=== PATIENT | male | born 1995 | race Two or more races ===

== ENCOUNTER 2022-05-01 03:50 | Inpatient (IN) | payer SELFPAY ==
[~2022-05-01] VITALS: Ht 170.2 cm; Wt 180.0 kg
[2022-05-01 05:58] LABS: Basophils # (auto) 0.1 10 ^3/uL (0-0.2); Basophils % (auto) 0.8 % (0.0-2.0); Eosinophils # (auto) 0 10 ^3/uL (0-0.8); Eosinophils % (auto) 0.6 % (0.0-7.0); Hematocrit 42.8 % (41.0-53.0); Hemoglobin 15.5 g/dL (13.5-17.5); Lymphocytes # (auto) 1.2 10 ^3/uL (0.4-5.4); Lymphocytes % (auto) 19.3 % (10.0-50.0); Mean Corpuscular Hemoglobin 32.3 pg (28.0-32.0); Mean Corpuscular Hgb Conc. 36.2 g/dL (32.0-36.0); Mean Corpuscular Volume 89.4 fL (80.0-100.0); Monocytes # (auto) 0.5 10 ^3/uL (0-1.3); Monocytes % (auto) 9.1 % (0.0-12.0); Neutrophils # (auto) 4.2 10 ^3/uL (1.6-8.6); Neutrophils % (auto) 70.2 % (37.0-80.0); Nucleated Red Blood Cells % 1.5 %; Red Blood Cells 4.79 10^6/uL (4.5-5.90); Red Cell Distribution Width 13.4 % (11.8-14.3)
[2022-05-01 06:35] LABS: Albumin 4.3 g/dL (3.4-5.0); Calcium 8.9 mg/dL (8.5-10.1); Potassium 3.6 mmol/L (3.5-5.1)
[2022-05-01 06:37] LABS: BUN/Creatinine Ratio 8.8; Bilirubin, Total 0.8 mg/dL (0.2-1.0); Total Protein 7.4 g/dL (6.4-8.2)
[2022-05-01] MEDS ORDERED: MORPHINE SULFATE 4 MG/ML SYR/VIAL IV ONE (06:45)
[2022-05-01] MEDS ORDERED: ONDANSETRON HCL 4 MG/2 ML VIAL IV ONE (06:45)
[2022-05-01] MEDS ORDERED: ONDA-144 PO (07:03)
[2022-05-01] MEDS ORDERED: SODIUM CHLORIDE 0.9% 1,000 ML IV ONE ×2 (08:30→09:30)
[2022-05-01 11:08] LABS: Urine Bacteria FEW /hpf (None Seen); Urine Blood Negative /uL (Negative); Urine Specific Gravity 1.011 (1.001-1.035); Urine WBC 13 /hpf (0 - 3)
[2022-05-01 11:25] LABS: Alcohol, Urine < 3.0 mg/dL (0-10); Amphetamine Screen, Urine NEGATIVE (NEGATIVE); Barbiturate Scree,Urine NEGATIVE (NEGATIVE); Benzodiazephine Screen, Urine NEGATIVE (NEGATIVE); Cannabinoid Screen, Urine NEGATIVE (NEGATIVE); Cocaine Screen, Urine NEGATIVE (NEGATIVE); Opiate Scree,Urine NEGATIVE (NEGATIVE); Phencyclidine Screen, Urine NEGATIVE (NEGATIVE)
[2022-05-01] MEDS ORDERED: ACETAMINOPHEN 325 MG TAB PO PRN (12:45)
[2022-05-01] MEDS ORDERED: NITROGLYCERIN 0.4 MG SL TAB SL PRN (12:45)
[2022-05-01] MEDS ORDERED: ONDANSETRON HCL 4 MG/2 ML VIAL IV PRN (12:45)
[2022-05-01] MEDS ORDERED: MORPHINE SULFATE INJ 2 MG/ml SYRG IV PRN ×2 (12:45)
[2022-05-01] MEDS ORDERED: HYDROcodone-ACET 5/325MG TAB PO PRN (12:45)
[2022-05-01] MEDS ORDERED: hydrALAZINE HCL 20 MG/ML VL IV PRN (13:00)
[2022-05-01] MEDS ORDERED: PANTOPRAZOLE 40 MG/10 ML VIAL INJ IV ONE (13:00)
[2022-05-01] MEDS: SODIUM CHLORIDE 0.9% 1,000 ML IV SCH ×2 (13:50→19:59)
[2022-05-01 13:51] LABS: Cholesterol 235 mg/dL (< 200)
[2022-05-01 13:54] LABS: HDL Cholesterol 49 mg/dL (40-59); LDL Cholesterol 149 mg/dL (< 100); Triglycerides 341 mg/dL (< 150)
[2022-05-02] MEDS: SODIUM CHLORIDE 0.9% 1,000 ML IV SCH (02:05)
[2022-05-02 05:00] VITALS: BP 148/94
[2022-05-02 05:32] LABS: Basophils # (auto) 0 10 ^3/uL (0-0.2); Basophils % (auto) 0.7 % (0.0-2.0); Eosinophils # (auto) 0.1 10 ^3/uL (0-0.8); Eosinophils % (auto) 2.6 % (0.0-7.0); Hematocrit 40.6 % (41.0-53.0); Hemoglobin 14.6 g/dL (13.5-17.5); Lymphocytes # (auto) 0.8 10 ^3/uL (0.4-5.4); Lymphocytes % (auto) 16.7 % (10.0-50.0); Mean Corpuscular Hemoglobin 32.3 pg (28.0-32.0); Mean Corpuscular Hgb Conc. 35.9 g/dL (32.0-36.0); Mean Corpuscular Volume 90.1 fL (80.0-100.0); Monocytes # (auto) 0.5 10 ^3/uL (0-1.3); Monocytes % (auto) 9.7 % (0.0-12.0); Neutrophils # (auto) 3.4 10 ^3/uL (1.6-8.6); Neutrophils % (auto) 70.3 % (37.0-80.0); Nucleated Red Blood Cells % 0.1 %; Red Blood Cells 4.51 10^6/uL (4.5-5.90); Red Cell Distribution Width 13.2 % (11.8-14.3); White Blood Cell 4.9 10^3/uL (4.4-10.8)
[2022-05-02 05:55] LABS: Albumin 3.4 g/dL (3.4-5.0); BUN/Creatinine Ratio 8.8; Calcium 8.4 mg/dL (8.5-10.1); Potassium 3.5 mmol/L (3.5-5.1)
[2022-05-02 06:01] LABS: Bilirubin, Total 1.9 mg/dL (0.2-1.0); Total Protein 6.7 g/dL (6.4-8.2)
[2022-05-02] MEDS ORDERED: PANTOPRAZOLE 40 MG/10 ML VIAL INJ IV SCH (10:00)
== END 2022-05-02 07:40 | disposition left against medical advice (07) | DRG 392 ==
LOC: ER 03:50 → TELE 12:40
PROVIDERS: ADMIT Registered Nurse; ATTEND Registered Nurse
DX: K52.9 Noninfective gastroenteritis and colitis, unspecified (principal); Z68.44 Body mass index [BMI] 60.0-69.9, adult; I10 Essential (primary) hypertension; F17.210 Nicotine dependence, cigarettes, uncomplicated; E66.9 Obesity, unspecified; R00.0 Tachycardia, unspecified; Z20.822 Contact with and (suspected) exposure to COVID-19; Z71.3 Dietary counseling and surveillance; Z53.29 Procedure and treatment not carried out because of patient's decision for other reasons; R07.9 Chest pain, unspecified
CPT/HCPCS: 36415; 71045; 74176; 76705; 80053; 80061; 80307; 81001; 83036; 83690; 83880; 84443; 84484; 85025; 85379; 87426; 93005; 96361; 96374; 96375; C9113; G0378; J2405

== ENCOUNTER 2022-09-18 09:56 | Inpatient (IN) | payer MEDICAID, OTHER ==
[~2022-09-18] VITALS: Ht 170.2 cm; Wt 86.0 kg
[~2022-09-18 09:56] MED LIST: ONDA-144 PO
[2022-09-18] MEDS ORDERED: PANTOPRAZOLE 40 MG/10 ML VIAL INJ IV ONE (11:15)
[2022-09-18] MEDS ORDERED: ONDANSETRON HCL 4 MG/2 ML VIAL IV ONE (11:15)
[2022-09-18] MEDS ORDERED: LORazepam 2MG/ML-1ML VIAL IV ONE (11:15)
[2022-09-18] MEDS ORDERED: THIAMINE 100mg/ml INJ (200mg/2ml VIAL) IV ONE (11:15)
[2022-09-18] MEDS ORDERED: SODIUM CHLORIDE 0.9% 1,000 ML IV ONE (11:30)
[2022-09-18 11:49] LABS: Basophils # (auto) 0 10 ^3/uL (0-0.2); Basophils % (auto) 0.5 % (0.0-2.0); Eosinophils # (auto) 0.1 10 ^3/uL (0-0.8); Eosinophils % (auto) 1.3 % (0.0-7.0); Hematocrit 47.8 % (41.0-53.0); Hemoglobin 16.5 g/dL (13.5-17.5); Lymphocytes # (auto) 0.8 10 ^3/uL (0.4-5.4); Lymphocytes % (auto) 9.5 % (10.0-50.0); Mean Corpuscular Hemoglobin 30.3 pg (28.0-32.0); Mean Corpuscular Hgb Conc. 34.5 g/dL (32.0-36.0); Mean Corpuscular Volume 87.8 fL (80.0-100.0); Monocytes # (auto) 0.5 10 ^3/uL (0-1.3); Monocytes % (auto) 6.5 % (0.0-12.0); Neutrophils # (auto) 6.8 10 ^3/uL (1.6-8.6); Neutrophils % (auto) 82.2 % (37.0-80.0); Nucleated Red Blood Cells % 0.1 %; Red Blood Cells 5.45 10^6/uL (4.5-5.90); Red Cell Distribution Width 13.5 % (11.8-14.3); White Blood Cell 8.3 10^3/uL (4.4-10.8)
[2022-09-18 11:53] LABS: Urine Bacteria NONE SEEN /hpf (None Seen); Urine Blood Negative /uL (Negative); Urine Mucus MANY (None Seen); Urine Specific Gravity 1.033 (1.001-1.035); Urine WBC 1 /hpf (0 - 3)
[2022-09-18 11:59] LABS: Chloride 104 mmol/L (98-107); Potassium 4.4 mmol/L (3.5-5.1); Sodium 138 mmol/L (136-145)
[2022-09-18 12:12] LABS: Alanine Aminotransferase 142 U/L (16-61); Albumin 4.4 g/dL (3.4-5.0); Alkaline Phosphatase 123 U/L (45-117); Anion Gap 7 (5-15); Aspartate Aminotransferase 157 U/L (15-37); Bilirubin, Total 1.4 mg/dL (0.2-1.0); Blood Alcohol < 3.0 mg/dL (<10); Blood Urea Nitrogen 7 mg/dL (7-18); Calcium 9.7 mg/dL (8.5-10.1); Carbon Dioxide 27 mmol/L (21-32); GFR African American 98 mL/min; GFR Non-African American 81 mL/min; Glucose 138 mg/dL (74-106); Lipase 115 U/L (73-393); Total Protein 8.7 g/dL (6.4-8.2)
[2022-09-18 13:04] LABS: Amphetamine Screen, Urine NEGATIVE (NEGATIVE); Barbiturate Scree,Urine NEGATIVE (NEGATIVE); Benzodiazephine Screen, Urine POSITIVE (NEGATIVE); Cannabinoid Screen, Urine POSITIVE (NEGATIVE); Cocaine Screen, Urine POSITIVE (NEGATIVE); Opiate Scree,Urine NEGATIVE (NEGATIVE); Phencyclidine Screen, Urine NEGATIVE (NEGATIVE)
[2022-09-18] MEDS: MAGNESIUM SULFATE 1GM/100ML 100 ML IV SCH ×2 (13:15→14:15)
[2022-09-18] MEDS ORDERED: MORPHINE SULFATE INJ 2 MG/ml SYRG IV PRN (13:45)
[2022-09-18] MEDS ORDERED: NITROGLYCERIN 0.4 MG SL TAB SL PRN (13:45)
[2022-09-18] MEDS ORDERED: LORazepam 2MG/ML-1ML VIAL IV PRN (14:00)
[2022-09-18] MEDS ORDERED: hydrALAZINE HCL 20 MG/ML VL IV PRN (14:00)
[2022-09-18] MEDS: chlordiazePOXIDE HCL 25 MG CAP PO SCH ×2 (14:00→21:35)
[2022-09-18] MEDS ORDERED: ONDANSETRON HCL 4 MG/2 ML VIAL IV PRN (14:00)
[2022-09-18 14:44] LABS: INR 1.11 (0.9-1.15); Partial Thromboplastin Time 28.2 SEC (24.5-34.5)
[2022-09-18] MEDS: MORPHINE SULFATE INJ 2 MG/ml SYRG IV PRN ×2 (14:57→21:36)
[2022-09-18 15:11] VITALS: RESP 18; O2SAT 96
[2022-09-19] MEDS: chlordiazePOXIDE HCL 25 MG CAP PO SCH ×3 (05:38→21:14)
[2022-09-19 05:41] LABS: Basophils # (auto) 0 10 ^3/uL (0-0.2); Basophils % (auto) 0.4 % (0.0-2.0); Eosinophils # (auto) 0.3 10 ^3/uL (0-0.8); Eosinophils % (auto) 7.3 % (0.0-7.0); Hematocrit 38.9 % (41.0-53.0); Hemoglobin 13.5 g/dL (13.5-17.5); Lymphocytes # (auto) 0.9 10 ^3/uL (0.4-5.4); Lymphocytes % (auto) 20.2 % (10.0-50.0); Mean Corpuscular Hemoglobin 30.6 pg (28.0-32.0); Mean Corpuscular Hgb Conc. 34.7 g/dL (32.0-36.0); Mean Corpuscular Volume 88.1 fL (80.0-100.0); Monocytes # (auto) 0.3 10 ^3/uL (0-1.3); Monocytes % (auto) 8.2 % (0.0-12.0); Neutrophils # (auto) 2.7 10 ^3/uL (1.6-8.6); Neutrophils % (auto) 63.9 % (37.0-80.0); Nucleated Red Blood Cells % 0.4 %; Red Blood Cells 4.41 10^6/uL (4.5-5.90); Red Cell Distribution Width 13.5 % (11.8-14.3); White Blood Cell 4.3 10^3/uL (4.4-10.8)
[2022-09-19 06:04] LABS: Potassium 3.5 mmol/L (3.5-5.1)
[2022-09-19 06:13] LABS: Albumin 3.4 g/dL (3.4-5.0); BUN/Creatinine Ratio 11.2 (10.0-20.0); Bilirubin, Total 2.2 mg/dL (0.2-1.0); Calcium 8.6 mg/dL (8.5-10.1); Total Protein 6.8 g/dL (6.4-8.2)
[2022-09-19 08:00] VITALS: PULSE 68; RESP 16; O2SAT 97
[2022-09-19] MEDS: PANTOPRAZOLE 40 MG/10 ML VIAL INJ IV SCH (09:37)
[2022-09-19] MEDS ORDERED: FOLIC ACID 1 MG, MULTIPLE VITAMIN 10 ML, MAGNESIUM SULF SDV 50% 8 MEQ, THIAMINE INJ 100... INJ SCH ×5 (12:00)
[2022-09-19] MEDS: HYDROcodone-ACET 5/325MG TAB PO PRN (17:55)
[2022-09-19 19:50] VITALS: PULSE 96; PULSE 98; RESP 18; O2SAT 95
[2022-09-19 22:00] VITALS: BP 143/99; PULSE 94; RESP 18; TEMP 98; O2SAT 94
[2022-09-19] MEDS ORDERED: TEMAZEPAM 15 MG CAP PO ONE (23:30)
[2022-09-20 05:00] VITALS: BP 125/76; PULSE 84; RESP 18; TEMP 97.9; O2SAT 100
[2022-09-20 06:57] LABS: Albumin 3.2 g/dL (3.4-5.0); Potassium 3.6 mmol/L (3.5-5.1)
[2022-09-20 07:01] LABS: BUN/Creatinine Ratio 9.7 (10.0-20.0); Basophils # (auto) 0 10 ^3/uL (0-0.2); Basophils % (auto) 0.5 % (0.0-2.0); Eosinophils # (auto) 0.4 10 ^3/uL (0-0.8); Eosinophils % (auto) 8.7 % (0.0-7.0); Hematocrit 39.7 % (41.0-53.0); Hemoglobin 13.8 g/dL (13.5-17.5); Lymphocytes # (auto) 0.9 10 ^3/uL (0.4-5.4); Lymphocytes % (auto) 17.6 % (10.0-50.0); Mean Corpuscular Hemoglobin 30.8 pg (28.0-32.0); Mean Corpuscular Hgb Conc. 34.7 g/dL (32.0-36.0); Mean Corpuscular Volume 88.8 fL (80.0-100.0); Monocytes # (auto) 0.4 10 ^3/uL (0-1.3); Monocytes % (auto) 7.9 % (0.0-12.0); Neutrophils # (auto) 3.2 10 ^3/uL (1.6-8.6); Neutrophils % (auto) 65.3 % (37.0-80.0); Red Blood Cells 4.47 10^6/uL (4.5-5.90); Red Cell Distribution Width 13.8 % (11.8-14.3); Total Protein 6.6 g/dL (6.4-8.2); White Blood Cell 4.9 10^3/uL (4.4-10.8)
[2022-09-20 08:00] VITALS: PULSE 109; PULSE 85; RESP 17; O2SAT 99
[2022-09-20 09:00] VITALS: BP 152/82; PULSE 109; RESP 17; TEMP 97.9; O2SAT 99
[2022-09-20] MEDS: PANTOPRAZOLE 40 MG/10 ML VIAL INJ IV SCH (09:11)
[2022-09-20] MEDS: HYDROcodone-ACET 5/325MG TAB PO PRN (09:18)
[2022-09-20] MEDS ORDERED: chlordiazePOXIDE HCL 25 MG CAP PO SCH (10:00)
[2022-09-20] MEDS ORDERED: LORA-1121 PO (11:04)
[2022-09-20] MEDS ORDERED: GABA-1250 PO (11:04)
[2022-09-20] MEDS ORDERED: FOLIC ACID 1 MG, MULTIPLE VITAMIN 10 ML, MAGNESIUM SULF SDV 50% 8 MEQ, THIAMINE INJ 100... INJ SCH ×5 (12:00)
[2022-09-20 13:00] VITALS: BP 142/77; PULSE 82; RESP 17; TEMP 97.6; O2SAT 94
[2022-09-20 14:56] VITALS: TEMP 36.4
[2022-09-21] MEDS ORDERED: chlordiazePOXIDE HCL 25 MG CAP PO SCH (07:00)
== END 2022-09-20 15:40 | disposition home or self-care (01) | DRG 775 ==
LOC: EDBD 09:56 → ER 09:56 → TELE 13:46 → TELE-WESTW 09-19 17:35
PROVIDERS: ADMIT Internal Medicine; ATTEND Internal Medicine
DX: F10.239 Alcohol dependence with withdrawal, unspecified (principal); K70.10 Alcoholic hepatitis without ascites; F17.210 Nicotine dependence, cigarettes, uncomplicated; I16.0 Hypertensive urgency; F19.10 Other psychoactive substance abuse, uncomplicated; I10 Essential (primary) hypertension; R74.01 Elevation of levels of liver transaminase levels
CPT/HCPCS: 36415; 70450; 74177; 80053; 80307; 80320; 81001; 82140; 82550; 83690; 83735; 84484; 85025; 85610; 85730; 96361; 96374; 96375; C9113; G0378; J2405

== ENCOUNTER 2023-01-07 18:03 | Inpatient (IN) | payer MEDICAID ==
[~2023-01-07] VITALS: Ht 172.7 cm; Wt 95.5 kg
[~2023-01-07 18:03] MED LIST changes: +GABA-1250 PO; +LORA-1121 PO
[2023-01-07] MEDS ORDERED: SODIUM CHLORIDE 0.9% 1,000 ML IV ONE (18:30)
[2023-01-07] MEDS ORDERED: LORazepam 2MG/ML-1ML VIAL IV ONE (18:30)
[2023-01-07 19:01] LABS: Basophils # (auto) 0 10 ^3/uL (0-0.2); Basophils % (auto) 0.7 % (0.0-2.0); Eosinophils # (auto) 0.2 10 ^3/uL (0-0.8); Eosinophils % (auto) 2.4 % (0.0-7.0); Hematocrit 43.2 % (41.0-53.0); Hemoglobin 15.1 g/dL (13.5-17.5); Lymphocytes # (auto) 1.5 10 ^3/uL (0.4-5.4); Lymphocytes % (auto) 21.6 % (10.0-50.0); Mean Corpuscular Hgb Conc. 34.9 g/dL (32.0-36.0); Mean Corpuscular Volume 94.6 fL (80.0-100.0); Monocytes # (auto) 0.5 10 ^3/uL (0-1.3); Monocytes % (auto) 7.5 % (0.0-12.0); Neutrophils # (auto) 4.7 10 ^3/uL (1.6-8.6); Neutrophils % (auto) 67.8 % (37.0-80.0); Nucleated Red Blood Cells % 0.1 %; Red Blood Cells 4.56 10^6/uL (4.5-5.90); Red Cell Distribution Width 16.7 % (11.8-14.3)
[2023-01-07 19:13] LABS: Lipase 60 U/L (12-53)
[2023-01-07 19:15] LABS: Alanine Aminotransferase 97 U/L (7-40); Albumin 4.7 g/dL (3.2-4.8); Alkaline Phosphatase 118 U/L (46-116); Anion Gap 13 (5-15); Aspartate Aminotransferase 94 U/L (13-40); BUN/Creatinine Ratio 9.4 (10.0-20.0); Blood Alcohol 124.3 mg/dL (<10); Blood Urea Nitrogen 9 mg/dL (9-23); Calcium 9.1 mg/dL (8.7-10.4); Carbon Dioxide 21 mmol/L (20-30); Chloride 106 mmol/L (98-107); Glucose 153 mg/dL (74-106); Sodium 140 mmol/L (136-145)
[2023-01-07 19:16] LABS: Bilirubin, Total 0.7 mg/dL (0.2-1.0); Total Protein 7.7 g/dL (5.7-8.2)
[2023-01-07 19:22] LABS: Creatine Kinase IFCC 94 U/L (46-171)
[2023-01-07] MEDS ORDERED: NITROGLYCERIN 0.4 MG SL TAB SL PRN (20:45)
[2023-01-07] MEDS ORDERED: ONDANSETRON HCL 4 MG/2 ML VIAL IV PRN (20:45)
[2023-01-07] MEDS ORDERED: chlordiazePOXIDE HCL 25 MG CAP PO PRN (20:45)
[2023-01-07] MEDS ORDERED: MORPHINE SULFATE INJ 2 MG/ml SYRG IV PRN (20:45)
[2023-01-08] VITALS (8 sets, daily range): BP systolic 130–148; BP diastolic 86–99; PULSE 90–121; RESP 18–20; TEMP 97.9–98.5; O2SAT 93–99
[2023-01-08] MEDS ORDERED: LORazepam 0.5 MG TAB PO ONE (05:15)
[2023-01-08 05:19] LABS: Alanine Aminotransferase 100 U/L (7-40); Albumin 4.6 g/dL (3.2-4.8); Alkaline Phosphatase 99 U/L (46-116); Anion Gap 9 (5-15); Aspartate Aminotransferase 100 U/L (13-40); BUN/Creatinine Ratio 11.9 (10.0-20.0); Bilirubin, Total 1.5 mg/dL (0.2-1.0); Blood Urea Nitrogen 12 mg/dL (9-23); Calcium 9.2 mg/dL (8.5-10.1); Carbon Dioxide 26 mmol/L (20-30); Chloride 108 mmol/L (98-107); Glucose 130 mg/dL (74-106); Sodium 143 mmol/L (136-145); Total Protein 7.3 g/dL (5.7-8.2)
[2023-01-08 06:37] LABS: Basophils # (auto) 0 10 ^3/uL (0-0.2); Basophils % (auto) 0.4 % (0.0-2.0); Eosinophils # (auto) 0.1 10 ^3/uL (0-0.8); Eosinophils % (auto) 1.7 % (0.0-7.0); Hematocrit 40.9 % (41.0-53.0); Hemoglobin 14.1 g/dL (13.5-17.5); Lymphocytes # (auto) 1.3 10 ^3/uL (0.4-5.4); Lymphocytes % (auto) 16.8 % (10.0-50.0); Mean Corpuscular Hemoglobin 32.8 pg (28.0-32.0); Mean Corpuscular Hgb Conc. 34.6 g/dL (32.0-36.0); Mean Corpuscular Volume 94.8 fL (80.0-100.0); Monocytes # (auto) 0.5 10 ^3/uL (0-1.3); Monocytes % (auto) 7.1 % (0.0-12.0); Neutrophils # (auto) 5.5 10 ^3/uL (1.6-8.6); Nucleated Red Blood Cells % 0.7 %; Red Blood Cells 4.31 10^6/uL (4.5-5.90); Red Cell Distribution Width 16.2 % (11.8-14.3); White Blood Cell 7.5 10^3/uL (4.4-10.8)
[2023-01-08 06:50] LABS: INR 1.13 (0.9-1.15); Partial Thromboplastin Time 27.8 SEC (24.5-34.5); Prothrombin Time 11.8 sec (9.3-11.8)
[2023-01-08] MEDS ORDERED: cloNIDine HCL 0.1 MG TAB PO PRN (10:00)
[2023-01-08] MEDS: PANTOPRAZOLE 40 MG TAB PO SCH (11:12)
[2023-01-08] MEDS: LORazepam 2MG/ML-1ML VIAL IV PRN (11:18)
[2023-01-08] MEDS: FOLIC ACID 1 MG, MULTIPLE VITAMIN 10 ML, MAGNESIUM SULF SDV 50% 8 MEQ, THIAMINE INJ 100... INJ SCH ×5 (13:31)
[2023-01-08 14:12] LABS: Urine Bacteria NONE SEEN /hpf (None Seen); Urine Blood Negative /uL (Negative); Urine Clarity Clear (Clear); Urine Color Yellow (Yellow); Urine Protein, UAD Negative (Negative); Urine Specific Gravity 1.024 (1.001-1.035); Urine WBC 10 /hpf (0 - 3); Urine pH 7.5 (5.0-8.0)
[2023-01-08 14:29] LABS: Amphetamine Screen, Urine Neg (NEGATIVE); Barbiturate Scree,Urine Neg (NEGATIVE); Benzodiazephine Screen, Urine Neg (NEGATIVE); Cannabinoid Screen, Urine Neg (NEGATIVE); Cocaine Screen, Urine Neg (NEGATIVE); Opiate Scree,Urine Neg (NEGATIVE); Phencyclidine Screen, Urine Neg (NEGATIVE)
[2023-01-09] VITALS (7 sets, daily range): BP systolic 119–145; BP diastolic 76–98; PULSE 84–117; RESP 12–20; TEMP 97.5–98.7; O2SAT 93–97
[2023-01-09 06:11] LABS: Alanine Aminotransferase 150 U/L (7-40); Albumin 4.1 g/dL (3.2-4.8); Alkaline Phosphatase 96 U/L (46-116); Anion Gap 7 (5-15); Aspartate Aminotransferase 219 U/L (13-40); BUN/Creatinine Ratio 10.8 (10.0-20.0); Blood Urea Nitrogen 11 mg/dL (9-23); Calcium 8.6 mg/dL (8.7-10.4); Carbon Dioxide 26 mmol/L (20-30); Chloride 106 mmol/L (98-107); Glucose 117 mg/dL (74-106); Magnesium 2.2 mg/dL (1.6-2.6); Sodium 139 mmol/L (136-145)
[2023-01-09 06:12] LABS: Bilirubin, Total 2.1 mg/dL (0.2-1.0); Total Protein 6.7 g/dL (5.7-8.2)
[2023-01-09] MEDS: PANTOPRAZOLE 40 MG TAB PO SCH (09:37)
[2023-01-09] MEDS: FOLIC ACID 1 MG, MULTIPLE VITAMIN 10 ML, MAGNESIUM SULF SDV 50% 8 MEQ, THIAMINE INJ 100... INJ SCH ×5 (13:41)
[2023-01-09] MEDS: LORazepam 2MG/ML-1ML VIAL IV PRN ×2 (17:19→23:17)
[2023-01-10 05:00] VITALS: BP 117/69; PULSE 91; RESP 17; TEMP 98.1; O2SAT 95
[2023-01-10 05:52] LABS: Alanine Aminotransferase 192 U/L (7-40); Alkaline Phosphatase 87 U/L (46-116)
[2023-01-10 05:53] LABS: Albumin 4.1 g/dL (3.2-4.8); Anion Gap 7 (5-15); Aspartate Aminotransferase 200 U/L (13-40); BUN/Creatinine Ratio 7.6 (10.0-20.0); Bilirubin, Total 1.3 mg/dL (0.2-1.0); Blood Urea Nitrogen 7 mg/dL (9-23); Calcium 8.6 mg/dL (8.7-10.4); Carbon Dioxide 25 mmol/L (20-30); Chloride 106 mmol/L (98-107); Glucose 114 mg/dL (74-106); Sodium 138 mmol/L (136-145); Total Protein 6.7 g/dL (5.7-8.2)
[2023-01-10 08:00] VITALS: PULSE 102; RESP 16
[2023-01-10 09:00] VITALS: BP 142/93; PULSE 102; RESP 16; TEMP 98.3; O2SAT 97
[2023-01-10] MEDS ORDERED: LORA-1121 PO (09:47)
[2023-01-10] MEDS ORDERED: MULT-351 PO (09:47)
[2023-01-10] MEDS: PANTOPRAZOLE 40 MG TAB PO SCH (10:45)
[2023-01-10] MEDS: FOLIC ACID 1 MG, MULTIPLE VITAMIN 10 ML, MAGNESIUM SULF SDV 50% 8 MEQ, THIAMINE INJ 100... INJ SCH ×5 (12:00)
[2023-01-10 13:30] VITALS: BP 125/79; PULSE 103; RESP 16; TEMP 98.5; O2SAT 97
== END 2023-01-10 14:21 | disposition home or self-care (01) | DRG 280 ==
LOC: ER 18:03 → TELE 20:51 → TELE-CENTR 01-08 05:30 → CENTRAL 01-09 15:26
PROVIDERS: ADMIT Nurse Practitioner; ATTEND Internal Medicine
DX: K70.10 Alcoholic hepatitis without ascites (principal); E66.9 Obesity, unspecified; F10.239 Alcohol dependence with withdrawal, unspecified; I10 Essential (primary) hypertension; K76.0 Fatty (change of) liver, not elsewhere classified; Z68.31 Body mass index [BMI] 31.0-31.9, adult
CPT/HCPCS: 36415; 70450; 71045; 74176; 80053; 80307; 80320; 81001; 82550; 82962; 83690; 83735; 84100; 84484; 85025; 85610; 85730; 93005; 96361; 96374; 99291; G0378; J2405

== ENCOUNTER 2023-02-20 20:56 | Emergency (ER) | payer MEDICAID ==
[~2023-02-20] VITALS: Ht 170.2 cm; Wt 91.0 kg
[~2023-02-20 20:56] MED LIST changes: +MULT-351 PO
[2023-02-20 21:56] LABS: Basophils # (auto) 0 10 ^3/uL (0-0.2); Basophils % (auto) 0.7 % (0.0-2.0); Eosinophils # (auto) 0.2 10 ^3/uL (0-0.8); Eosinophils % (auto) 3.8 % (0.0-7.0); Hematocrit 41.6 % (41.0-53.0); Lymphocytes # (auto) 1.2 10 ^3/uL (0.4-5.4); Lymphocytes % (auto) 19.8 % (10.0-50.0); Mean Corpuscular Hemoglobin 31.8 pg (28.0-32.0); Mean Corpuscular Hgb Conc. 33.6 g/dL (32.0-36.0); Mean Corpuscular Volume 94.7 fL (80.0-100.0); Monocytes # (auto) 0.4 10 ^3/uL (0-1.3); Monocytes % (auto) 6.1 % (0.0-12.0); Neutrophils # (auto) 4.2 10 ^3/uL (1.6-8.6); Neutrophils % (auto) 69.6 % (37.0-80.0); Red Blood Cells 4.39 10^6/uL (4.5-5.90); Red Cell Distribution Width 14.8 % (11.8-14.3)
[2023-02-20 22:10] LABS: Alanine Aminotransferase 147 U/L (7-40); Albumin 4.4 g/dL (3.2-4.8); Alkaline Phosphatase 88 U/L (46-116); Anion Gap 6 (5-15); Aspartate Aminotransferase 67 U/L (13-40); BUN/Creatinine Ratio 10.3 (10.0-20.0); Blood Urea Nitrogen 11 mg/dL (9-23); Carbon Dioxide 26 mmol/L (20-30); Chloride 107 mmol/L (98-107); Glucose 213 mg/dL (74-106); Magnesium 1.8 mg/dL (1.6-2.6); Potassium 3.8 mmol/L (3.5-5.1); Sodium 139 mmol/L (136-145); Total Protein 7.1 g/dL (5.7-8.2)
[2023-02-20] MEDS ORDERED: KETOROLAC TROMETH 60MG/2ML VIAL IM ONE (22:15)
[2023-02-20] MEDS ORDERED: ONDANSETRON ODT 4 MG TAB PO ONE (22:15)
[2023-02-20 22:59] LABS: Bilirubin, Total 0.8 mg/dL (0.2-1.0)
[2023-02-20 23:03] LABS: INR 1.09 (0.9-1.15); Partial Thromboplastin Time 27.3 SEC (24.5-34.5); Prothrombin Time 11.4 sec (9.3-11.8)
[2023-02-20 23:14] VITALS: BP 154/89; PULSE 124; RESP 18; O2SAT 95
[2023-02-21 00:01] LABS: Amphetamine Screen, Urine Neg (NEGATIVE); Urine Bacteria NONE SEEN /hpf (None Seen); Urine Blood Negative /uL (Negative); Urine Clarity Clear (Clear); Urine Color Yellow (Yellow); Urine Mucus FEW (None Seen); Urine Protein, UAD Negative (Negative); Urine Specific Gravity 1.024 (1.001-1.035); Urine Urobilinogen Normal (Negative); Urine WBC <1 /hpf (0 - 3); Urine pH 5.5 (5.0-8.0)
[2023-02-21 00:02] LABS: Barbiturate Scree,Urine Neg (NEGATIVE); Benzodiazephine Screen, Urine Neg (NEGATIVE); Cannabinoid Screen, Urine Pos (NEGATIVE); Cocaine Screen, Urine Neg (NEGATIVE); Opiate Scree,Urine Neg (NEGATIVE); Phencyclidine Screen, Urine Neg (NEGATIVE)
[2023-02-21] MEDS ORDERED: IBUP-1455 PO (00:45)
== END 2023-02-21 00:55 | disposition home or self-care (01) ==
LOC: ER 20:56
DX: M94.0 Chondrocostal junction syndrome [Tietze] (principal); I10 Essential (primary) hypertension; Z79.899 Other long term (current) drug therapy
CPT/HCPCS: 36415; 80053; 80307; 80320; 81001; 82962; 83735; 83880; 84443; 84484; 85025; 85610; 85730; 93005; 96372; 99284; J1885; Q0162

== ENCOUNTER 2023-09-22 12:49 | Inpatient (IN) | payer MEDICAID ==
[~2023-09-22] VITALS: Ht 170.2 cm; Wt 94.4 kg
[~2023-09-22 12:49] MED LIST changes: +IBUP-1455 PO
[2023-09-22] MEDS: LORazepam 2MG/ML-1ML VIAL IV ONE (13:19)
[2023-09-22] MEDS: SODIUM CHLORIDE 0.9% 1,000 ML IV ONE ×2 (13:22→14:34)
[2023-09-22 13:37] LABS: Basophils # (auto) 0 10 ^3/uL (0-0.2); Basophils % (auto) 0.4 % (0.0-2.0); Eosinophils # (auto) 0.1 10 ^3/uL (0-0.8); Eosinophils % (auto) 1.8 % (0.0-7.0); Hematocrit 42.5 % (41.0-53.0); Hemoglobin 14.6 g/dL (13.5-17.5); Lymphocytes # (auto) 0.8 10 ^3/uL (0.4-5.4); Mean Corpuscular Hemoglobin 33.2 pg (28.0-32.0); Mean Corpuscular Hgb Conc. 34.4 g/dL (32.0-36.0); Mean Corpuscular Volume 96.5 fL (80.0-100.0); Monocytes # (auto) 0.5 10 ^3/uL (0-1.3); Monocytes % (auto) 10.7 % (0.0-12.0); Neutrophils # (auto) 2.9 10 ^3/uL (1.6-8.6); Neutrophils % (auto) 69.1 % (37.0-80.0); Nucleated Red Blood Cells % 0.2 %; Red Blood Cells 4.41 10^6/uL (4.5-5.90); Red Cell Distribution Width 16.9 % (11.8-14.3); White Blood Cell 4.3 10^3/uL (4.4-10.8)
[2023-09-22 13:55] LABS: Alanine Aminotransferase 76 U/L (7-40); Albumin 4.4 g/dL (3.2-4.8); Alkaline Phosphatase 113 U/L (46-116); Anion Gap 11 (5-15); Aspartate Aminotransferase 26 U/L (13-40); Bilirubin, Total 0.8 mg/dL (0.2-1.0); Blood Urea Nitrogen 12 mg/dL (9-23); Calcium 9.6 mg/dL (8.7-10.4); Carbon Dioxide 22 mmol/L (20-30); Chloride 98 mmol/L (98-107); Magnesium 1.6 mg/dL (1.6-2.6); Potassium 4.9 mmol/L (3.5-5.1); Sodium 131 mmol/L (136-145); Total Protein 6.9 g/dL (5.7-8.2)
[2023-09-22 14:07] LABS: Glucose 773 mg/dL (74-106)
[2023-09-22] MEDS: InsuLIN REG 1unit/0.01ml Soln (100units/ml) IV ONE (14:29)
[2023-09-22 16:28] LABS: Urine Bacteria None Seen /hpf (None Seen)
[2023-09-22 16:39] LABS: Urine Blood Negative /uL (Negative); Urine Clarity Clear (Clear); Urine Color STRAW (Yellow); Urine Protein, UAD Negative (Negative); Urine Urobilinogen Normal (Negative); Urine WBC <1 /hpf (0 - 3)
[2023-09-22 16:50] LABS: Amphetamine Screen, Urine Neg (NEGATIVE); Barbiturate Scree,Urine Neg (NEGATIVE); Benzodiazephine Screen, Urine Neg (NEGATIVE); Cannabinoid Screen, Urine Neg (NEGATIVE); Cocaine Screen, Urine Neg (NEGATIVE); Opiate Scree,Urine Neg (NEGATIVE); Phencyclidine Screen, Urine Neg (NEGATIVE)
[2023-09-22] MEDS ORDERED: NITROGLYCERIN 0.4 MG SL TAB SL PRN (20:00)
[2023-09-22] MEDS ORDERED: LORazepam 0.5 MG TAB PO PRN (20:00)
[2023-09-22] MEDS ORDERED: DOCUSATE SOD 100 MG CAP PO PRN (20:00)
[2023-09-22] MEDS ORDERED: ACETAMINOPHEN 325 MG TAB PO PRN (20:00)
[2023-09-22] MEDS ORDERED: DEXTROSE (50%) 50ML SYRG IV PRN (20:00)
[2023-09-22] MEDS ORDERED: HYDROcodone-ACET 5/325MG TAB PO PRN (20:00)
[2023-09-22] MEDS ORDERED: ONDANSETRON HCL 4 MG/2 ML VIAL IV PRN (20:00)
[2023-09-22] MEDS: ACCU-CHEK COMFORT CURVE STRIP VI SCH (20:00)
[2023-09-22] MEDS: InsuLIN REG 1unit/0.01ml Soln (100units/ml) SC SCH (20:58)
[2023-09-22] MEDS: SODIUM CHLORIDE 0.9% 1,000 ML IV SCH (21:33)
[2023-09-23] VITALS (11 sets, daily range): BP systolic 128–152; BP diastolic 89–103; PULSE 91–108; RESP 16–21; TEMP 95.8–98.4; O2SAT 94–100
[2023-09-23] MEDS: MORPHINE SULFATE INJ 2 MG/ml SYRG IV PRN (00:26)
[2023-09-23] MEDS ORDERED: BUSP30TA PO (01:29)
[2023-09-23] MEDS ORDERED: CLON0.5T4 PO (01:29)
[2023-09-23 06:44] LABS: Basophils # (auto) 0 10 ^3/uL (0-0.2); Basophils % (auto) 0.2 % (0.0-2.0); Eosinophils # (auto) 0.1 10 ^3/uL (0-0.8); Eosinophils % (auto) 3.3 % (0.0-7.0); Hematocrit 37.6 % (41.0-53.0); Hemoglobin 13.1 g/dL (13.5-17.5); Lymphocytes % (auto) 23.1 % (10.0-50.0); Mean Corpuscular Hemoglobin 32.4 pg (28.0-32.0); Mean Corpuscular Hgb Conc. 34.8 g/dL (32.0-36.0); Mean Corpuscular Volume 93.1 fL (80.0-100.0); Monocytes # (auto) 0.4 10 ^3/uL (0-1.3); Neutrophils # (auto) 2.8 10 ^3/uL (1.6-8.6); Neutrophils % (auto) 63.4 % (37.0-80.0); Nucleated Red Blood Cells % 0.2 %; Red Blood Cells 4.04 10^6/uL (4.5-5.90); Red Cell Distribution Width 17.5 % (11.8-14.3); White Blood Cell 4.5 10^3/uL (4.4-10.8)
[2023-09-23 06:45] LABS: Chloride 105 mmol/L (98-107); Potassium 3.3 mmol/L (3.5-5.1); Sodium 139 mmol/L (136-145)
[2023-09-23 06:46] LABS: Anion Gap 10 (5-15); Carbon Dioxide 24 mmol/L (20-30)
[2023-09-23 06:47] LABS: Calcium 8.7 mg/dL (8.7-10.4)
[2023-09-23 06:51] LABS: BUN/Creatinine Ratio 10.2 (10.0-20.0); Blood Urea Nitrogen 9 mg/dL (9-23)
[2023-09-23 06:52] LABS: Glucose 229 mg/dL (74-106)
[2023-09-23] MEDS: ENOXAPARIN SOD 40 MG/0.4 ML SYRINGE SC SCH (10:00)
[2023-09-23 14:24] LABS: Triglycerides 932 mg/dL (< 150)
[2023-09-23 14:26] LABS: HDL Cholesterol 22 mg/dL (40-59)
[2023-09-23 14:27] LABS: Cholesterol 244 mg/dL (< 200)
[2023-09-23] MEDS: FOLIC ACID 1 MG, MAGNESIUM SULF SDV 50% 8 MEQ, MULTIPLE VITAMIN 10 ML, THIAMINE INJ 100... INJ SCH (17:17)
[2023-09-23] MEDS: metFORMIN HYDROCHLORIDE 500 MG TAB PO SCH (17:20)
[2023-09-23] MEDS: GABAPENTIN 300 MG CAP PO SCH (22:06)
[2023-09-24 00:42] VITALS: BP 100/40; PULSE 112; RESP 20; TEMP 98.1; O2SAT 93
[2023-09-24 00:49] VITALS: BP 128/82; PULSE 93; RESP 17; TEMP 97.4; O2SAT 97
[2023-09-24 05:00] VITALS: BP 123/92; PULSE 80; RESP 17; TEMP 97.8; O2SAT 99
[2023-09-24 05:32] LABS: Basophils # (auto) 0 10 ^3/uL (0-0.2); Basophils % (auto) 0.2 % (0.0-2.0); Eosinophils # (auto) 0.2 10 ^3/uL (0-0.8); Eosinophils % (auto) 4.6 % (0.0-7.0); Hematocrit 39.9 % (41.0-53.0); Hemoglobin 14.1 g/dL (13.5-17.5); Lymphocytes # (auto) 1.2 10 ^3/uL (0.4-5.4); Lymphocytes % (auto) 26.4 % (10.0-50.0); Mean Corpuscular Hemoglobin 32.8 pg (28.0-32.0); Mean Corpuscular Hgb Conc. 35.4 g/dL (32.0-36.0); Mean Corpuscular Volume 92.7 fL (80.0-100.0); Monocytes # (auto) 0.5 10 ^3/uL (0-1.3); Monocytes % (auto) 10.8 % (0.0-12.0); Neutrophils # (auto) 2.7 10 ^3/uL (1.6-8.6); Nucleated Red Blood Cells % 0.3 %; Red Cell Distribution Width 17.5 % (11.8-14.3); White Blood Cell 4.7 10^3/uL (4.4-10.8)
[2023-09-24 05:42] LABS: Chloride 105 mmol/L (98-107); Potassium 3.5 mmol/L (3.5-5.1); Sodium 140 mmol/L (136-145)
[2023-09-24 05:43] LABS: Anion Gap 9 (5-15); Carbon Dioxide 26 mmol/L (20-30)
[2023-09-24 05:48] LABS: BUN/Creatinine Ratio 7.4 (10.0-20.0); Blood Urea Nitrogen 6 mg/dL (9-23); Glucose 191 mg/dL (74-106)
[2023-09-24 08:00] VITALS: PULSE 80; PULSE 83; RESP 18; O2SAT 94
[2023-09-24] MEDS: MULTIPLE VITAMINS W/ MINERALS TAB PO SCH (08:52)
[2023-09-24] MEDS: busPIRone HCL 10 MG TAB PO SCH (08:52)
[2023-09-24 09:00] VITALS: BP 141/91; PULSE 84; RESP 16; TEMP 97.8; O2SAT 97
[2023-09-24] MEDS ORDERED: METF-371 PO (09:56)
[2023-09-24] MEDS ORDERED: PANT40T PO (09:58)
[2023-09-24] MEDS ORDERED: LOS25T PO (10:01)
[2023-09-24 12:45] VITALS: BP_SYST 130; BP_SYST 132; BP_DIAS 90; BP_DIAS 99; PULSE 82; RESP 15; RESP 18; TEMP 36.6; O2SAT 95; O2SAT 97
== END 2023-09-24 13:27 | disposition home or self-care (01) | DRG 199 ==
LOC: ER 12:49 → TELE 20:02 → TELE-E-ADS 23:51 → OBSVTOIN 09-23 14:06
PROVIDERS: ADMIT Nurse Practitioner Family; ATTEND Hospitalist
DX: I16.0 Hypertensive urgency (principal); E87.1 Hypo-osmolality and hyponatremia; E11.65 Type 2 diabetes mellitus with hyperglycemia; E83.42 Hypomagnesemia; F10.10 Alcohol abuse, uncomplicated; Y90.9 Presence of alcohol in blood, level not specified; E87.6 Hypokalemia; F41.9 Anxiety disorder, unspecified; F32.A Depression, unspecified; Z79.899 Other long term (current) drug therapy; Z83.3 Family history of diabetes mellitus
CPT/HCPCS: 36415; 71045; 80048; 80053; 80061; 80307; 80320; 81001; 82962; 83036; 83735; 84484; 85025; 87081; 93005; 93306; 96361; 96374; 96375; G0378; J1815

== ENCOUNTER 2024-01-05 12:30 | Inpatient (IN) | payer MEDICAID ==
[~2024-01-05] VITALS: Ht 170.2 cm; Wt 91.4 kg
[~2024-01-05 12:30] MED LIST changes: +BUSP30TA PO; +LOS25T PO; +METF-371 PO; +PANT40T PO
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
[2024-01-05] MEDS: MORPHINE SULFATE 4 MG/ML SYR/VIAL IV ONE (13:08)
[2024-01-05] MEDS: ONDANSETRON HCL 4 MG/2 ML VIAL IV ONE ×2 (13:08→15:50)
[2024-01-05] MEDS: SODIUM CHLORIDE 0.9% 1,000 ML IV ONE ×2 (13:08→14:02)
[2024-01-05] MEDS: cloNIDine HCL 0.1 MG TAB PO ONE (13:09)
[2024-01-05] MEDS: InsuLIN REG 1unit/0.01ml Soln (100units/ml) IV ONE (13:09)
--- NOTE | 2024-01-05 13:54 | ECG ---
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
[2024-01-05] MEDS: MORPHINE SULFATE INJ 2 MG/ml SYRG IV ONE (15:50)
[2024-01-05] MEDS: cefTRIAXone 1GM/50ML D5W 50 ML IV ONE (15:58)
[2024-01-05 16:08] LABS: Basophils # (auto) 0 10 ^3/uL (0-0.2); Basophils % (auto) 0.4 % (0.0-2.0); Eosinophils # (auto) 0.1 10 ^3/uL (0-0.8); Eosinophils % (auto) 1.9 % (0.0-7.0); Hematocrit 42.4 % (41.0-53.0); Hemoglobin 14.9 g/dL (13.5-17.5); Lymphocytes # (auto) 0.6 10 ^3/uL (0.4-5.4); Lymphocytes % (auto) 9.1 % (10.0-50.0); Mean Corpuscular Hemoglobin 32.6 pg (28.0-32.0); Monocytes # (auto) 0.6 10 ^3/uL (0-1.3); Monocytes % (auto) 8.2 % (0.0-12.0); Neutrophils # (auto) 5.6 10 ^3/uL (1.6-8.6); Neutrophils % (auto) 80.4 % (37.0-80.0); Nucleated Red Blood Cells % 0.2 %; Platelet Count (auto) 261 10^3/uL (140-450); Red Blood Cells 4.56 10^6/uL (4.5-5.90); Red Cell Distribution Width 13.5 % (11.8-14.3)
[2024-01-05 16:34] LABS: Anion Gap 6 (5-15); Carbon Dioxide 26 mmol/L (20-31); Chloride 102 mmol/L (98-107); Potassium 4.3 mmol/L (3.5-5.1); Sodium 134 mmol/L (136-145)
[2024-01-05 16:35] LABS: Calcium 9.5 mg/dL (8.7-10.4)
[2024-01-05 16:39] LABS: Glucose 227 mg/dL (74-106)
[2024-01-05 16:40] LABS: BUN/Creatinine Ratio 13.6 (10.0-20.0); Blood Urea Nitrogen 9 mg/dL (9-23)
--- NOTE | 2024-01-05 17:32 | DVH ---
EXAM: XY R KNEE 2V XRAY CLINICAL HISTORY: fall COMPARISON: None TECHNIQUE: XY R KNEE 2V XRAY Findings/Impression: 2 views of the right knee. There is no evidence of an acute fracture, dislocation, blastic, or lytic lesions. No radiopaque foreign bodies. No joint effusion. Mild soft tissue edema.
[2024-01-05] MEDS: HYDROcodone-ACET 10/325MG TAB PO ONE (17:52)
[2024-01-05 19:24] LABS: Urine Bacteria None Seen /hpf (None Seen)
[2024-01-05 19:39] LABS: Urine Blood Negative /uL (Negative); Urine Clarity Clear (Clear); Urine Color Yellow (Yellow); Urine Hyaline Cast FEW /lpf (0 - 2); Urine Mucus FEW (None Seen); Urine Protein, UAD TRACE (Negative); Urine Specific Gravity 1.039 (1.001-1.035); Urine Urobilinogen Normal (Negative); Urine WBC 2 /hpf (0 - 3); Urine pH 5.5 (5.0-9.0)
--- NOTE | 2024-01-05 21:41 | DVH ---
EXAM: XY CHEST XRAY 1 VIEW CLINICAL HISTORY: cp TECHNIQUE: Single AP view of the chest WID: COMPARISON: XY CHEST PORTABLE on DOS: 09/22/23 FINDINGS: Lines and tubes: None Chest: The heart size and pulmonary vasculature is within normal limits. No pleural effusion, pneumothorax, or consolidation. The osseous structures are grossly intact. IMPRESSION: No acute cardiopulmonary abnormality.
--- NOTE | 2024-01-05 21:44 | DVH ---
EXAM: CT CT R KNEE WO CONTRAST INDICATION: infected wound EXAM DATE: 01/05/2024 09:15 PM COMPARISON: CT HEAD WITHOUT CONTRAST on DOS: 01/07/23, CT HEAD WITHOUT CONTRAST on DOS: 09/18/22 TECHNIQUE: Multiple axial CT images of the right knee were obtained using bone algorithm. Axial and c oronal reformatting was done. Bone and soft tissue windows were reviewed. Radiation Dose Information: CT Dose: CTDI volume is 7.75 mGy. Dose-length product is 255.43 mGy*cm Findings: There is no evidence of an acute fracture, dislocation, blastic, or lytic lesions. No radiopaque foreign bodies. No joint effusion. Mild anterior soft tissue edema. No focal fluid collections. Impression: 1. No acute osseous abnormality. 2. Mild anterior soft tissue edema. 3. No focal fluid collections.
[2024-01-05] MEDS ORDERED: NITROGLYCERIN 0.4 MG SL TAB SL PRN (22:30)
[2024-01-05] MEDS ORDERED: ONDANSETRON HCL 4 MG/2 ML VIAL IV PRN (22:30)
[2024-01-05] MEDS ORDERED: MORPHINE SULFATE INJ 2 MG/ml SYRG IV PRN (22:30)
[2024-01-05] MEDS ORDERED: DOCUSATE SOD 100 MG CAP PO PRN (22:30)
[2024-01-05] MEDS ORDERED: DEXTROSE (50%) 50ML SYRG IV PRN (22:30)
[2024-01-05] MEDS ORDERED: hydrALAZINE HCL 20 MG/ML VL IV PRN (22:45)
[2024-01-05] MEDS: SODIUM CHLORIDE 0.9% 1,000 ML IV SCH (22:46)
[2024-01-06] VITALS (8 sets, daily range): BP systolic 103–153; BP diastolic 40–106; PULSE 66–107; RESP 18–20; TEMP 97.3–98.2; O2SAT 95–98
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
[2024-01-06 04:53] LABS: Basophils # (auto) 0 10 ^3/uL (0-0.2); Basophils % (auto) 0.6 % (0.0-2.0); Eosinophils # (auto) 0.3 10 ^3/uL (0-0.8); Eosinophils % (auto) 5.7 % (0.0-7.0); Hematocrit 42.5 % (41.0-53.0); Hemoglobin 14.6 g/dL (13.5-17.5); Lymphocytes # (auto) 1.1 10 ^3/uL (0.4-5.4); Lymphocytes % (auto) 22.6 % (10.0-50.0); Mean Corpuscular Hemoglobin 32.1 pg (28.0-32.0); Mean Corpuscular Hgb Conc. 34.4 g/dL (32.0-36.0); Mean Corpuscular Volume 93.2 fL (80.0-100.0); Monocytes # (auto) 0.6 10 ^3/uL (0-1.3); Monocytes % (auto) 11.3 % (0.0-12.0); Neutrophils # (auto) 2.9 10 ^3/uL (1.6-8.6); Neutrophils % (auto) 59.8 % (37.0-80.0); Nucleated Red Blood Cells % 0.1 %; Platelet Count (auto) 266 10^3/uL (140-450); Red Blood Cells 4.56 10^6/uL (4.5-5.90); Red Cell Distribution Width 13.8 % (11.8-14.3); White Blood Cell 4.9 10^3/uL (4.4-10.8)
[2024-01-06 04:56] LABS: Chloride 101 mmol/L (98-107); Sodium 135 mmol/L (136-145)
[2024-01-06 04:57] LABS: Anion Gap 7 (5-15); Calcium 9.6 mg/dL (8.7-10.4); Carbon Dioxide 27 mmol/L (20-31)
[2024-01-06 05:02] LABS: BUN/Creatinine Ratio 8.5 (10.0-20.0); Blood Urea Nitrogen 7 mg/dL (9-23); Glucose 210 mg/dL (74-106)
[2024-01-06] MEDS: HYDROcodone-ACET 5/325MG TAB PO PRN (05:04)
[2024-01-06] MEDS: PIPERACILLIN-TAZOB 3.375GM 100 ML IV SCH (06:08)
[2024-01-06] MEDS: ACCU-CHEK COMFORT CURVE STRIP VI SCH (07:00)
[2024-01-06] MEDS: InsuLIN REG 1unit/0.01ml Soln (100units/ml) SC SCH ×2 (08:32→21:29)
[2024-01-06] MEDS: ENOXAPARIN SOD 40 MG/0.4 ML SYRINGE SC SCH (10:00)
[2024-01-06] MEDS: PANTOPRAZOLE 40 MG TAB PO SCH (11:17)
[2024-01-06] MEDS: HYDROcodone-ACET 10/325MG TAB PO ONE (11:17)
[2024-01-06] MEDS: LOSARTAN POTASSIUM 25 MG TAB PO SCH (11:18)
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
[2024-01-06] MEDS ORDERED: VANCOMYCIN PER PHARMACY 0 MG IV SCH (15:00)
[2024-01-06] MEDS: VANCOMYCIN 1GM/200ML PREMIX 200 ML IV SCH (15:57)
[2024-01-06] MEDS: diphenhdrAMINE HCL 50 MG/1 ML VL IV ONE (19:29)
[2024-01-06] MEDS: methylPREDNISolone SOD SUCC 125 MG/2 ML VL IV ONE (19:29)
[2024-01-06] MEDS: methylPREDNISolone SOD SUCC 125 MG/2 ML VL ONE (19:30)
[2024-01-06] MEDS: FAMOTIDINE (10MG/ML) 2ML VL IV ONE (19:36)
[2024-01-06] MEDS: diphenhdrAMINE HCL 50 MG/1 ML VL ONE (19:36)
[2024-01-06] MEDS: cloNIDine HCL 0.1 MG TAB PO ONE (20:03)
[2024-01-06] MEDS: FAMOTIDINE (10MG/ML) 2ML VL IV SCH (21:21)
[2024-01-06] MEDS ORDERED: SEMA2INJ3 SC (21:35)
[2024-01-06] MEDS ORDERED: ATOR20TA50 PO (21:35)
[2024-01-06] MEDS: methylPREDNISolone SOD SUCC 40 MG/ML VL IV SCH (23:46)
[2024-01-06] MEDS: diphenhdrAMINE HCL 50 MG/1 ML VL IV SCH (23:46)
[2024-01-07] VITALS (9 sets, daily range): BP systolic 112–146; BP diastolic 72–91; PULSE 66–104; RESP 17–21; TEMP 97.9–98.4; O2SAT 97–98
[2024-01-07] MEDS ORDERED: VANCOMYCIN 1.25GM/250ML 250 ML IV SCH
[2024-01-07 06:22] LABS: Basophils # (auto) 0 10 ^3/uL (0-0.2); Basophils % (auto) 0.1 % (0.0-2.0); Eosinophils # (auto) 0 10 ^3/uL (0-0.8); Hematocrit 45.9 % (41.0-53.0); Lymphocytes # (auto) 0.4 10 ^3/uL (0.4-5.4); Lymphocytes % (auto) 4.3 % (10.0-50.0); Mean Corpuscular Hemoglobin 32.9 pg (28.0-32.0); Monocytes # (auto) 0.1 10 ^3/uL (0-1.3); Monocytes % (auto) 0.8 % (0.0-12.0); Neutrophils # (auto) 9.2 10 ^3/uL (1.6-8.6); Neutrophils % (auto) 94.8 % (37.0-80.0); Platelet Count (auto) 299 10^3/uL (140-450); Red Blood Cells 4.88 10^6/uL (4.5-5.90); Red Cell Distribution Width 13.6 % (11.8-14.3); White Blood Cell 9.7 10^3/uL (4.4-10.8)
[2024-01-07 06:23] LABS: Chloride 101 mmol/L (98-107); Potassium 4.5 mmol/L (3.5-5.1); Sodium 134 mmol/L (136-145)
[2024-01-07 06:24] LABS: Anion Gap 12 (5-15); Carbon Dioxide 21 mmol/L (20-31)
[2024-01-07 06:29] LABS: BUN/Creatinine Ratio 11.4 (10.0-20.0); Blood Urea Nitrogen 10 mg/dL (9-23); Glucose 292 mg/dL (74-106)
[2024-01-07] MEDS: cefTRIAXone 2GM/50ML D5W 50 ML IV SCH (11:55)
--- NOTE | 2024-01-07 12:15 | ECG ---
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
--- NOTE | 2024-01-07 13:56 | DVHPN2 ---
Progress Note - Dictate Date Seen: Jan 07, 2024 Subjective Patient is awake and alert X4. No S/S of distress/SOB and is complaining of 7 out of 10 pain. vital signs Vital Sign Date Time Temp Pulse Resp B/P (MAP) Pulse Ox O2 Delivery O2 Flow Rate FiO2 01/07/24 12:28 97.9 78 19 146/91 (109) 97 97.9 01/07/24 10:06 Room Air* 0 21 Total Intake and Output 01/06/24 01/06/24 01/07/24 15:00 23:00 07:00 Intake Total 400 ml 1500 ml Balance 400 ml 1500 ml medications Current Medications Medications Dose Ordered Sig/Yordan Route Start Time Stop Time Status Last Admin Dose Admin Sodium Chloride 1,000 ml @ 100 mls/hr Q10H IV 01/05/24 22:30 01/06/24 22:09 100 MLS/HR Docusate Sodium 100 mg BIDPRN PRN PO 01/05/24 22:30 Acetaminophen 650 mg Q6HP PRN PO 01/05/24 22:30 Acetaminophen/ Hydrocodone Bitart 1 tab Q4HP PRN PO 01/05/24 22:30 01/07/24 10:25 1 TAB Ondansetron HCl 4 mg Q4HP PRN IV 01/05/24 22:30 Enoxaparin Sodium 40 mg DAILY SC 01/06/24 10:00 Nitroglycerin 0.4 mg Q5MINP PRN SL 01/05/24 22:30 Morphine Sulfate 2 mg Q30M PRN IV 01/05/24 22:30 Diagnostic Test (Pha) 1 strip ACHS 01/06/24 07:00 01/07/24 11:55 1 STRIP Insulin Human Regular HS SC 01/06/24 22:00 01/06/24 21:29 6 UNITS Insulin Human Regular AC SC 01/06/24 07:00 01/07/24 12:47 6 UNITS Dextrose 50 ml UD PRN IV 01/05/24 22:30 Losartan Potassium 25 mg DAILY PO 01/06/24 10:00 01/07/24 10:26 25 MG Hydralazine HCl 10 mg Q4HP PRN IV 01/05/24 22:45 Pantoprazole Sodium 40 mg DAILY PO 01/06/24 10:00 01/07/24 10:26 40 MG Vancomycin HCl 0 ml @ 0 mls/hr UD IV 01/06/24 15:00 Ceftriaxone Sodium/Dextrose 50 ml @ 50 mls/hr DAILY IV 01/07/24 10:00 01/07/24 11:55 50 MLS/HR Vancomycin HCl 250 ml @ 200 mls/hr Q8H IV 01/07/24 00:00 Hold Methylprednisolone Sodium Succinate 40 mg Q6HR IV 01/07/24 00:00 01/07/24 11:54 40 MG Famotidine 20 mg Q12HR IV 01/06/24 22:00 01/07/24 10:26 20 MG Diphenhydramine HCl 50 mg Q6HR IV 01/07/24 00:00 01/07/24 11:54 50 MG laboratory and microbiology Laboratory Tests 01/07/24 04:29 Test 01/07/24 04:29 Range/Units Serum Glucose 292 H 74-106 mg/dL Assessment/Plan Assessment Right knee wound with cellulitis Chest pain Hypertension Uncontrolled T2DM with hyperglycemia Plan/Recommendation recommendations X-ray (date unspecified): No fluid detected deep inside, indicating superficial involvement. MRSA swab: Ordered, results pending. Current medication: Vancomycin started for suspected MRSA infection. Pain control by consult primary Continue [place] as needed for pain relief MANJEET PLATT MD Jan 07, 2024 13:56
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
[2024-01-07] MEDS ORDERED: VANCOMYCIN 1GM/200ML PREMIX 200 ML IV SCH (17:00)
--- NOTE | 2024-01-07 19:36 | DVHPN2 ---
Subjective Patient stated that right knee cellulitis is improving. Reviewed: Care Plan Changes from previous H/P or p: No Changes Eyes: No Pain, No Vision change, No Conjunctivae inflammation, No Eyelid inflammation, No Other, No Redness ENT: No Ear pain, No Ear discharge, No Nose pain, No Nose discharge, No Nose congestion, No Mouth pain, No Mouth swelling, No Throat pain, No Throat swelling, No Other Cardiovascular: Chest Pain Respiratory: No Cough, No Dry, No Shortness of breath, No SOB with excertion, No Wheezing, No Hemoptysis, No Pleuritic Pain, No Sputum, No Other Gastrointestinal: No Nausea, No Vomiting, No Abdominal Pain, No Diarrhea, No Constipation, No Melena, No Hematochezia, No Other Genitourinary: No Dysuria, No Frequency, No Incontinence, No Hematuria, No Retention, No Other Musculoskeletal: No other, No neck pain, No shoulder pain, No arm pain, No back pain, No hand pain; leg pain; No foot pain Skin: No Rash; Lesions; No Jaundice, No Bruising, No Other Objective Vitals Vital Signs Date Time Temp Pulse Resp B/P (MAP) Pulse Ox O2 Delivery O2 Flow Rate FiO2 01/07/24 17:00 98.4 90 17 126/76 (93) 97 98.4 01/07/24 10:06 Room Air* 0 21 Intake/Output Intake and Output 01/07/24 07:00 Intake Total 1900 ml Balance 1900 ml Intake Oral 600 ml IV Total 1300 ml # Voids 2 Exam HEENT pupils are reactive Neck is supple CV is S1-S2 regular rate and rhythm Respiratory diminished breath sound bases GI positive bowel sounds Extremity no edema 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 Medications Current Medications Medications Dose Ordered Sig/Yordan Route Start Time Stop Time Status Last Admin Dose Admin Sodium Chloride 1,000 ml @ 100 mls/hr Q10H IV 01/05/24 22:30 01/06/24 22:09 100 MLS/HR Docusate Sodium 100 mg BIDPRN PRN PO 01/05/24 22:30 Acetaminophen 650 mg Q6HP PRN PO 01/05/24 22:30 Acetaminophen/ Hydrocodone Bitart 1 tab Q4HP PRN PO 01/05/24 22:30 01/07/24 16:34 1 TAB Ondansetron HCl 4 mg Q4HP PRN IV 01/05/24 22:30 Enoxaparin Sodium 40 mg DAILY SC 01/06/24 10:00 Nitroglycerin 0.4 mg Q5MINP PRN SL 01/05/24 22:30 Morphine Sulfate 2 mg Q30M PRN IV 01/05/24 22:30 Diagnostic Test (Pha) 1 strip ACHS 01/06/24 07:00 01/07/24 17:07 1 STRIP Insulin Human Regular HS SC 01/06/24 22:00 01/06/24 21:29 6 UNITS Insulin Human Regular AC SC 01/06/24 07:00 01/07/24 17:09 8 UNITS Dextrose 50 ml UD PRN IV 01/05/24 22:30 Losartan Potassium 25 mg DAILY PO 01/06/24 10:00 01/07/24 10:26 25 MG Hydralazine HCl 10 mg Q4HP PRN IV 01/05/24 22:45 Pantoprazole Sodium 40 mg DAILY PO 01/06/24 10:00 01/07/24 10:26 40 MG Ceftriaxone Sodium/Dextrose 50 ml @ 50 mls/hr DAILY IV 01/07/24 10:00 01/07/24 11:55 50 MLS/HR Methylprednisolone Sodium Succinate 40 mg Q6HR IV 01/07/24 00:00 01/07/24 18:12 40 MG Famotidine 20 mg Q12HR IV 01/06/24 22:00 01/07/24 10:26 20 MG Diphenhydramine HCl 50 mg Q6HR IV 01/07/24 00:00 01/07/24 18:11 50 MG Laboratory Results Laboratory Tests 01/07/24 04:29 Chemistry Test 01/07/24 04:29 Calcium Level 10.0 mg/dL (8.7-10.4) Urinalysis Test 01/05/24 19:23 Urine Color Yellow (Yellow) Urine Clarity Clear (Clear) Urine pH 5.5 (5.0-9.0) Urine Specific [place] 1.039 (1.001-1.035) Urine Protein Trace (Negative) H Urine Ketones 3+ (Negative) H Urine Blood Negative /uL (Negative) Urine Nitrite Negative (Negative) Urine Bilirubin Negative (Negative) Urine Urobilinogen Normal mg/dL (Negative) Urine Leukocyte Esterase Negative /uL (Negative) Urine RBC 1 /hpf (0 - 3) Urine WBC 2 /hpf (0 - 3) Urine Squamous Epithelial Cells Few /hpf (<5) Urine Bacteria None seen /hpf (None Seen) Urine Hyaline Casts Few /lpf (0 - 2) Urine Mucus Few (None Seen) Urine Glucose 4+ mg/dL (Normal) H Microbiology Microbiology Date/Time Source Procedure Growth Status 01/06/24 15:37 Knee Right Gram Stain - Final Resulted 01/06/24 15:37 Knee Right Wound Culture - Preliminary Resulted Assessment/Plan Assessment/Plan 27-year-old young male who presented to the hospital with a right knee pain 1. Right knee cellulitis 2. Chest pain ND ruled out 3. Diabetes mellitus type 2 4. Hypertension -continue antibiotics, discharge plan. Plan discussed with: Patient My Orders Orders - TERESA HESTER MD Procedure Category Date Status Time Apply: PATRICK 01/07/24 In Process 10:02 Date of Service: Jan 07, 2024 Billing Provider: TERESA HESTER MD Common Visit Codes: NOT BILLABLE TERESA HESTER MD Jan 07, 2024 19:36
[2024-01-08] VITALS (7 sets, daily range): BP systolic 118–132; BP diastolic 66–80; PULSE 69–94; RESP 16–18; TEMP 36.4; O2SAT 95–98
[2024-01-08] MEDS: ACETAMINOPHEN 325 MG TAB PO PRN (00:18)
[2024-01-08 07:12] LABS: Basophils # (auto) 0 10 ^3/uL (0-0.2); Eosinophils # (auto) 0 10 ^3/uL (0-0.8); Hematocrit 44.2 % (41.0-53.0); Hemoglobin 15.1 g/dL (13.5-17.5); Lymphocytes # (auto) 0.4 10 ^3/uL (0.4-5.4); Lymphocytes % (auto) 2.6 % (10.0-50.0); Mean Corpuscular Hemoglobin 32.5 pg (28.0-32.0); Mean Corpuscular Volume 95.4 fL (80.0-100.0); Monocytes # (auto) 0.5 10 ^3/uL (0-1.3); Monocytes % (auto) 3.4 % (0.0-12.0); Neutrophils # (auto) 12.9 10 ^3/uL (1.6-8.6); Platelet Count (auto) 289 10^3/uL (140-450); Red Blood Cells 4.64 10^6/uL (4.5-5.90); White Blood Cell 13.7 10^3/uL (4.4-10.8)
[2024-01-08 07:22] LABS: Anion Gap 14 (5-15); Calcium 9.7 mg/dL (8.7-10.4); Carbon Dioxide 15 mmol/L (20-31); Chloride 106 mmol/L (98-107); Potassium 4.4 mmol/L (3.5-5.1); Sodium 135 mmol/L (136-145)
[2024-01-08 07:27] LABS: Glucose 321 mg/dL (74-106)
[2024-01-08 07:28] LABS: BUN/Creatinine Ratio 11.9 (10.0-20.0); Blood Urea Nitrogen 12 mg/dL (9-23)
--- NOTE | 2024-01-08 12:50 | DVHPN2 ---
Progress Note - Dictate Date Seen: Jan 08, 2024 Subjective Patient is awake and alert X4. No S/S of distress/SOB and is complaining of 7 out of 10 pain. Patient stated that right knee cellulitis is improving. vital signs Vital Sign Date Time Temp Pulse Resp B/P (MAP) Pulse Ox O2 Delivery O2 Flow Rate FiO2 01/08/24 09:31 126/80 01/08/24 08:50 97.6 89 18 96 97.6 01/08/24 08:00 Room Air* 0 21 Total Intake and Output 01/07/24 01/07/24 01/08/24 15:00 23:00 07:00 Intake Total 50 ml 1600 ml 1600 ml Output Total 2000 ml 1100 ml Balance 50 ml -400 ml 500 ml medications Current Medications Medications Dose Ordered Sig/Yordan Route Start Time Stop Time Status Last Admin Dose Admin Sodium Chloride 1,000 ml @ 100 mls/hr Q10H IV 01/05/24 22:30 01/08/24 06:58 100 MLS/HR Docusate Sodium 100 mg BIDPRN PRN PO 01/05/24 22:30 Acetaminophen 650 mg Q6HP PRN PO 01/05/24 22:30 01/08/24 00:18 650 MG Acetaminophen/ Hydrocodone Bitart 1 tab Q4HP PRN PO 01/05/24 22:30 01/08/24 09:46 1 TAB Ondansetron HCl 4 mg Q4HP PRN IV 01/05/24 22:30 Enoxaparin Sodium 40 mg DAILY SC 01/06/24 10:00 Nitroglycerin 0.4 mg Q5MINP PRN SL 01/05/24 22:30 Morphine Sulfate 2 mg Q30M PRN IV 01/05/24 22:30 Diagnostic Test (Pha) 1 strip ACHS 01/06/24 07:00 01/08/24 11:29 1 STRIP Insulin Human Regular HS SC 01/06/24 22:00 01/07/24 22:17 6 UNITS Insulin Human Regular AC SC 01/06/24 07:00 01/08/24 11:30 15 UNITS Dextrose 50 ml UD PRN IV 01/05/24 22:30 Losartan Potassium 25 mg DAILY PO 01/06/24 10:00 01/08/24 09:31 25 MG Hydralazine HCl 10 mg Q4HP PRN IV 01/05/24 22:45 Pantoprazole Sodium 40 mg DAILY PO 01/06/24 10:00 01/08/24 09:31 40 MG Ceftriaxone Sodium/Dextrose 50 ml @ 50 mls/hr DAILY IV 01/07/24 10:00 01/08/24 09:30 50 MLS/HR Methylprednisolone Sodium Succinate 40 mg Q6HR IV 01/07/24 00:00 01/08/24 11:28 40 MG Famotidine 20 mg Q12HR IV 01/06/24 22:00 01/08/24 09:30 20 MG Diphenhydramine HCl 50 mg Q6HR IV 01/07/24 00:00 01/08/24 11:28 50 MG laboratory and microbiology Laboratory Tests 01/08/24 06:57 Test 01/08/24 06:57 Range/Units Serum Glucose 321 H 74-106 mg/dL Assessment/Plan Assessment Right knee wound with cellulitis Chest pain Hypertension Uncontrolled T2DM with hyperglycemia Plan/Recommendation recommendations X-ray (date unspecified): No fluid detected deep inside, indicating superficial involvement. MRSA swab: Ordered, results pending. Current medication: Vancomycin started for suspected MRSA infection. Pain control by consult primary Continue [place] as needed for pain relief MANJEET PLATT MD Jan 08, 2024 12:50
[2024-01-08 13:59] LABS: Chloride 105 mmol/L (98-107); Potassium 4.2 mmol/L (3.5-5.1); Sodium 133 mmol/L (136-145)
[2024-01-08 14:00] LABS: Anion Gap 11 (5-15); Calcium 9.6 mg/dL (8.7-10.4); Carbon Dioxide 17 mmol/L (20-31)
[2024-01-08 14:05] LABS: BUN/Creatinine Ratio 12.5 (10.0-20.0); Blood Urea Nitrogen 13 mg/dL (9-23); Glucose 390 mg/dL (74-106)
--- NOTE | 2024-01-08 14:37 | DVHDS2 ---
Discharge Summary Date of Admission Jan 05, 2024 at 22:18 Date of Discharge: Jan 08, 2024 Labs/Diagnostic Data: Laboratory Results Test 01/08/24 13:35 01/08/24 10:42 01/08/24 06:57 01/07/24 15:22 Sodium Level 133 mmol/L (136-145) Potassium Level 4.2 mmol/L (3.5-5.1) Chloride Level 105 mmol/L (98-107) Carbon Dioxide Level 17 mmol/L (20-31) Anion Gap 11 (5-15) Blood Urea Nitrogen 13 mg/dL (9-23) Creatinine 1.04 mg/dL (0.700-1.30) Glomerular Filtration Rate Calc 100 mL/min (>90) BUN/Creatinine Ratio 12.5 (10.0-20.0) Serum Glucose 390 mg/dL (74-106) Calcium Level 9.6 mg/dL (8.7-10.4) POC Glucose 360 mg/dl (70-106) White Blood Count 13.7 10^3/uL (4.4-10.8) Red Blood Count 4.64 10^6/uL (4.5-5.90) Hemoglobin 15.1 g/dL (13.5-17.5) Hematocrit 44.2 % (41.0-53.0) Mean Corpuscular Volume 95.4 fL (80.0-100.0) Mean Corpuscular Hemoglobin 32.5 pg (28.0-32.0) Mean Corpuscular Hemoglobin Concent 34.0 g/dL (32.0-36.0) Red Cell Distribution Width 14.0 % (11.8-14.3) Platelet Count 289 10^3/uL (140-450) Mean Platelet Volume 7.1 fL (6.9-10.8) Neutrophils (%) (Auto) 94.0 % (37.0-80.0) Lymphocytes (%) (Auto) 2.6 % (10.0-50.0) Monocytes (%) (Auto) 3.4 % (0.0-12.0) Eosinophils (%) (Auto) 0.0 % (0.0-7.0) Basophils (%) (Auto) 0.0 % (0.0-2.0) Neutrophils # (Auto) 12.9 10 ^3/uL (1.6-8.6) Lymphocytes # (Auto) 0.4 10 ^3/uL (0.4-5.4) Monocytes # (Auto) 0.5 10 ^3/uL (0-1.3) Eosinophils # (Auto) 0 10 ^3/uL (0-0.8) Basophils # (Auto) 0 10 ^3/uL (0-0.2) Nucleated Red Blood Cells 0.0 % Vancomycin Level Trough < 3.0 ug/mL (5-10) Test 01/06/24 10:19 01/05/24 19:23 Troponin I High Sensitivity 3 ng/L (</=54) Urine Color Yellow (Yellow) Urine Clarity Clear (Clear) Urine pH 5.5 (5.0-9.0) Urine Specific [place] 1.039 (1.001-1.035) Urine Protein Trace (Negative) Urine Ketones 3+ (Negative) Urine Blood Negative /uL (Negative) Urine Nitrite Negative (Negative) Urine Bilirubin Negative (Negative) Urine Urobilinogen Normal mg/dL (Negative) Urine Leukocyte Esterase Negative /uL (Negative) Urine RBC 1 /hpf (0 - 3) Urine WBC 2 /hpf (0 - 3) Urine Squamous Epithelial Cells Few /hpf (<5) Urine Bacteria None seen /hpf (None Seen) Urine Hyaline Casts Few /lpf (0 - 2) Urine Mucus Few (None Seen) Urine Glucose 4+ mg/dL (Normal) Other Laboratory Tests 01/08/24 13:35 01/08/24 06:57 Brief Hx & Hospital Course: Patient will meal presented to the hospital with right knee pain found to have right knee cellulitis. Patient was started on IV antibiotics infectious Disease was consulted. Patient will be discharged on p.o. antibiotics . Infectious Disease cleared the patient to be discharged. Patient was requesting to go home and he is stable to be discharged. Condition at Discharge: Stable Final Diagnosis/Problems List 27-year-old young male who presented to the hospital with a right knee pain 1. Right knee cellulitis 2. Chest pain CO ruled out 3. Diabetes mellitus type 2 4. Hypertension Discharge Disposition: Home SNF Discharge Will this Physician continue t: No Discharge Instruct/Medications Diet: Cardiac 2g Na,low cholest Diet comment: One thousand eight hundred ADA diet Activity: No Restrictions, As Tolerated Follow Up/Referral: Please follow up with the PCP in 1-2 weeks Follow up with Infectious Disease in 1-2 weeks Medications: As prescribed. Discharge Statement: "Patient was advised to return to the ER or call 911 if any headaches, dizziness, shortness of breath, chest pain, abdominal pain, bleeding, fevers, or worsening of medical condition. Patient was counseled about treatment plan, medications, possible side effects, patientverbalized understanding. All questions were answered to the best of my ability. This discharge took greater then 30 minutes in planning, reviewing documentation, counseling the patient, and discussing with other team members." ASSESSMENT ASSESSMENT Assessment 27-year-old young male who presented to the hospital with a right knee pain 1. Right knee cellulitis 2. Chest pain CO ruled out 3. Diabetes mellitus type 2 4. Hypertension Date of Service: Jan 08, 2024 Billing Provider: TERESA HESTER MD Common Visit Codes: NOT BILLABLE TERESA HESTER MD Jan 08, 2024 14:37
[2024-01-08] MEDS ORDERED: BACDST PO (14:39)
[2024-01-08] MEDS: SULFAMETHOX W/TRIMETH(800/160MG) DS TAB PO ONE (16:39)
== END 2024-01-08 17:10 | disposition home or self-care (01) | DRG 383 ==
LOC: ER 12:30 → TELE 22:18 → TELE-WESTW 01-06 20:44
PROVIDERS: ADMIT Nurse Practitioner Family; ATTEND Internal Medicine
DX: L03.115 Cellulitis of right lower limb (principal); S81.001A Unspecified open wound, right knee, initial encounter; E11.65 Type 2 diabetes mellitus with hyperglycemia; I10 Essential (primary) hypertension; X58.XXXA Exposure to other specified factors, initial encounter; Z79.899 Other long term (current) drug therapy; Z79.1 Long term (current) use of non-steroidal anti-inflammatories (NSAID); Z83.3 Family history of diabetes mellitus; Z88.1 Allergy status to other antibiotic agents; Z81.8 Family history of other mental and behavioral disorders; Y93.89 Activity, other specified; Y92.89 Other specified places as the place of occurrence of the external cause; Y99.8 Other external cause status; I16.0 Hypertensive urgency
CPT/HCPCS: 36415; 71045; 73560; 73700; 80048; 80202; 81001; 82962; 84484; 85025; 87077; 87081; 87186; 87205; 93005; 96365; 96375; 99291; G0378; J1815; J2405; J2543; J3490

== ENCOUNTER 2024-02-19 21:02 | Emergency (ER) | payer MEDICAID ==
[~2024-02-19] VITALS: Ht 170.2 cm; Wt 91.6 kg
[~2024-02-19 21:02] MED LIST changes: +ATOR20TA50 PO; +BACDST PO; -LORA-1121 PO; +SEMA2INJ3 SC
[2024-02-19 21:15] VITALS: BP 162/113; RESP 22; O2SAT 98
--- NOTE | 2024-02-19 21:28 | ED.PDOC ---
GI ASSESSMENT HPI Comments A 27 year old male presents to the ED with a chief complaint of abdominal pain onset today. Patient states he drinks ETOH heavily and has about 7 - 24 oz bottles daily. Patient began experiencing abdominal pain as well as hematuria today. His last ETOH drink was about 2 hours ago. Denies any past medical history as well as nausea, vomiting, headache, shortness of breath, cough, dizziness. No other symptoms or modifying factors present at this time. Chief Complaint: Chest Pain Time Seen by MD: 21:18 Primary Care Provider: PT DOES NOT KNOW Reviewed Notes: Medications, Allergies Allergies: Coded Allergies: Vancomycin (Verified Allergy, Severe, 01/06/24) Home Meds Active Scripts Hydroxyzine Hcl (Hydroxyzine Hcl) 50 Mg Tab, 1 TAB PO QPM, #30 TAB Prov:JACQUELINE ALCANTARA 02/20/24 Metoclopramide Hcl (Reglan) 10 Mg Tab, 10 MG PO BID, #20 TAB Prov:JACQUELINE ALCANTARA 02/20/24 Sulfamethoxazole W/Trimethopri (Bactrim Ds Tablet) 1 Tab Tb, 1 TAB PO BID for 5 Days, #10 TAB Prov:TERESA HESTER MD 01/08/24 Losartan Potassium (Losartan Potassium) 25 Mg Tab, 25 MG PO QPM, #30 TAB Prov:DEBBI WHITING MD 09/24/23 Pantoprazole Sodium Sesquihydr (Pantoprazole Sodium) 40 Mg Tab, 40 MG PO DAILY, #30 TAB Prov:DEBBI WHITING MD 09/24/23 Metformin Hydrochloride (Metformin Hcl) 850 Mg Tab, 1 TAB PO BID, #60 TAB 1 Refill Prov:DEBBI WHITING MD 09/24/23 Gabapentin (Gabapentin) 300 Mg Cap, 1 CAP PO TID, #90 CAP 5 Refills Prov:SHAMIKA WOODWARD MD 03/10/23 Ibuprofen Micronized (Ibuprofen) 800 Mg Tab, 800 MG PO Q8HP PRN, #20 TAB Prov:ENRIQUETA KRAUS 02/21/23 Multiple Vitamins W/ Minerals (Mvi W/ Minerals Tab) 1 Tab Tb, 1 TAB PO DAILY for 30 Days, #30 TAB Prov:ESSIE TURNER MD 01/10/23 Ondansetron (Zofran) 4 Mg Tab, 4 MG PO DAILY for 5 Days, #5 MG Prov:VICTORINA BURKETT MD 05/01/22 Reported Medications Semaglutide (Ozempic) 2 Mg/3 Ml Inj, 2 MG SC, INJ 01/06/24 Atorvastatin Calcium (ATORVASTATIN CALCIUM) 20 Mg Tab, 1 TAB PO DAILY, #30 TAB 5 Refills 01/06/24 Buspirone Hcl (Buspirone Hcl) 30 Mg Tab, 1 PO DAILY 09/23/23 Information Source: Patient Mode of Arrival: Ambulatory Timing: Hours Duration: Since onset Prehospital treatment: None Severity: Moderate Recent: Ingestion of ETOH Pain Location: Diffuse Associated sign and symptoms: Nausea, Abdominal Pain Past Medical History PAST MEDICAL HISTORY: DM, Denies Surgical History: Denies all surgeries Family History Family History: Family hx of DM Social History Smoker: Cigarettes Alcohol: Heavy Drugs: Marijuana Lives In: Home Constitutional: denies: chills, diaphoresis, fatigue, fever, malaise, sweats, weakness, others EENTM: denies: blurred vision, double vision, ear bleeding, ear discharge, ear drainage, ear pain, ear ringing, eye pain, eye redness, hearing loss, mouth pain, mouth swelling, nasal discharge, nose bleeding, nose congestion, nose pain, photophobia, tearing, throat pain, throat swelling, voice changes, others Respiratory: denies: cough, hemoptysis, orthopnea, SOB at rest, shortness of breath, SOB with excertion, stridor, wheezing, others Cardiovascular: denies: chest pain, dizzy spells, diaphoresis, Dyspnea on exertion, edema, irregular heart beat, left arm pain, lightheadedness, palpitations, PND, syncope, others Gastrointestinal: reports: abdominal pain; denies: abdomen distended, blood streaked bowels, constipated, diarrhea, dysphagia, difficulty swallowing, hematemesis, melena, nausea, poor appetite, poor fluid intake, rectal bleeding, rectal pain, vomiting, others Genitourinary: reports: dysuria, hematuria; denies: burning, flank pain, frequency, incontinence, penile discharge, penile sore, pain, testicle pain, testicle swelling, urgency, others Neurological: denies: dizziness, fainting, headache, left sided numbness, left sided weakness, numbness, paresthesia, pre-existing deficit, right sided numbness, right sided weakness, seizure, speech problems, tingling, tremors, weakness, others Musculoskeletal: denies: back pain, gout, joint pain, joint swelling, muscle pain, muscle stiffness, neck pain, others Integumetry: denies: bruises, change in color, change in hair/nails, dryness, laceration, lesions, lumps, rash, wounds, others Allergic/Immunocompromised: denies: Difficulty Healing, Frequent Infections, Hives, Itching, others Hematologic/Lymphatic: denies: anemia, blood clots, easy bleeding, easy bru ising, swollen glands, others Endocrine: denies: excessive hunger, excessive sweating, excessive thirst, e xcessive urination, flushing, intolerance to cold, intolerance to heat, unexplained weight gain, unexplained weight loss, others Psychiatric: denies: anxiety, bipolar disorder, depression, hopeless, panic disorder, schizophrenia, sleepless, suicidal, others All Other Systems: Reviewed and Negative Physical Exam General Appearance: No Apparent Distress, Normal HEENT: Normal ENT Inspection, Pharynx Normal, TMs Normal Neck: Full Range of Motion, Non-Tender, Normal, Normal Inspection Respiratory: Chest Non-Tender, Lungs Clear, No Accessory Muscle Use, No Respiratory Distress, Normal Breath Sounds Cardiovascular: No Edema, No JVD, No Murmur, No Gallop, Normal Peripheral Pulses, Regular Rate/Rhythm Breast Exam: Deferred Gastrointestinal: No Organomegaly, Non Tender, No Pulsatile Mass, Normal Bowel Sounds, Soft Genitalia: Deferred Pelvic: Deferred Rectal: Deferred Extremities: No calf tenderness, Normal capillary refill, Normal inspection, Normal range of motion, Non-tender, No pedal edema Musculoskeletal : Apperance: Normal Neurologic: Alert, payment analyst II-XII nml as Tested, No Motor Deficits, Normal Affect, Normal Mood, No Sensory Deficits Cerebellar Function: Normal Reflexes: Normal Skin: Dry, Normal Color, Warm Lymphatic: No Adenopathy Was a procedure done? Was a procedure done?: No GI differential Dx Differential Diagnosis: Gastritis/PUD, Gastroenteritis X-Ray, Labs, Meds, VS Vital Signs Date Time Temp Pulse Resp B/P (MAP) Pulse Ox O2 Delivery O2 Flow Rate FiO2 02/19/24 22:18 105 02/19/24 21:15 97.7 128 22 162/113 (129) 98 02/19/24 21:07 126 Lab Test 02/19/24 22:10 02/19/24 21:27 02/19/24 21:20 Range/Units Troponin I High Sensitivity 6 6 </=54 ng/L Urine Color Colorless Yellow Urine Clarity Clear Clear Urine pH 5.5 5.0-9.0 Urine Specific [place] 1.005 1.001-1.035 Urine Protein Trace H Negative Urine Ketones Negative Negative Urine Blood Negative Negative /uL Urine Nitrite Negative Negative Urine Bilirubin Negative Negative Urine Urobilinogen Normal Negative mg/dL Urine Leukocyte Esterase Negative Negative /uL Urine RBC 1 0 - 3 /hpf Urine WBC None seen 0 - 3 /hpf Urine Squamous Epithelial Cells Few <5 /hpf Urine Bacteria None seen None Seen /hpf Urine Glucose 3+ H Normal mg/dL White Blood Count 6.7 4.4-10.8 10^3/uL Red Blood Count 5.37 4.5-5.90 10^6/uL Hemoglobin 16.9 13.5-17.5 g/dL Hematocrit 49.0 41.0-53.0 % Mean Corpuscular Volume 91.3 80.0-100.0 fL Mean Corpuscular Hemoglobin 31.5 28.0-32.0 pg Mean Corpuscular Hemoglobin Concent 34.5 32.0-36.0 g/dL Red Cell Distribution Width 13.7 11.8-14.3 % Platelet Count 319 140-450 10^3/uL Mean Platelet Volume 7.3 6.9-10.8 fL Neutrophils (%) (Auto) 40.3 37.0-80.0 % Lymphocytes (%) (Auto) 45.2 10.0-50.0 % Monocytes (%) (Auto) 10.7 0.0-12.0 % Eosinophils (%) (Auto) 2.5 0.0-7.0 % Basophils (%) (Auto) 1.3 0.0-2.0 % Neutrophils # (Auto) 2.7 1.6-8.6 10 ^3/uL Lymphocytes # (Auto) 3.0 0.4-5.4 10 ^3/uL Monocytes # (Auto) 0.7 0-1.3 10 ^3/uL Eosinophils # (Auto) 0.2 0-0.8 10 ^3/uL Basophils # (Auto) 0.1 0-0.2 10 ^3/uL Nucleated Red Blood Cells 0.8 % Sodium Level 138 136-145 mmol/L Potassium Level 4.0 3.5-5.1 mmol/L Chloride Level 101 98-107 mmol/L Carbon Dioxide Level 25 20-31 mmol/L Anion Gap 12 5-15 Blood Urea Nitrogen 6 L 9-23 mg/dL Creatinine 1.11 0.700-1.30 mg/dL Glomerular Filtration Rate Calc 93 >90 mL/min BUN/Creatinine Ratio 5.4 L 10.0-20.0 Serum Glucose 266 H 74-106 mg/dL Calcium Level 10.2 8.7-10.4 mg/dL [place] [id number] Ph: [phone] DIAGNOSTIC IMAGING Diagnostic Imaging Report : [id number] Signed PATIENT: MARCELLUS ALBERTS ACCT: [id number] UNIT: [id number] : 12/24/1996 LOC: ER ROOM / BED: / AGE / SEX: 27 / M ADM STATUS: REG ER SERVICE 31 ORDERING PHYSICIAN: SHASHI VIZCAINO MD PROCEDURE(s): CXR2 - CHEST TWO VIEWS ROUTINE REASON: chest pain ORDER NUMBER(s): [id number], ACCESSION NUMBER(s): [id number] CHEST RADIOGRAPH Indication: chest pain Technique: Frontal and lateral view of the chest was obtained Comparison: 01/05/2024 FINDINGS: Lines and Tubes: None Lungs: Clear Pleura: No effusion. No pneumothorax. Cardiomediastinal contours: Unremarkable Bones: Unremarkable IMPRESSION: 1. No evidence of acute disease. ATED BY: VISHAL GERMAIN Jr., DO DICTATED DATE/TIME: 02/19/242217 SIGNED BY: VISHAL GERMAIN Jr., DO SIGNED DATE/TIME: 02/19/242217 CC: Time of 1ST Reevaluation: 21:48 Reevaluation 1ST: Unchanged Patient Education/Counseling: Diagnosis, Treatment, Prognosis Family Education/Counseling: No Family Present Additional Information I reviewed the following notes from patient's past medical encounters: The following tests were ordered, and results were reviewed by me: TROP, EKG, TROP, TROP, EKG, EKG, UA I discussed treatment and results with medical personnel and: patient Departure 1 Departure Time of Disposition: 21:05 (Patient with concern for gastritis secondary to alcohol consumption. Patient unfortunately eloped from the emergency department) Impression: Primary Impression: Alcoholic gastritis Qualified Codes: K29.20 - Alcoholic gastritis without bleeding Disposition: LEFT AWOL/ELOPED Condition: Serious Critical Care Note Critical Care Time?: No Stability Stability form required: No I personally scribed for SHASHI VIZCAINO MD ([email or web address]) on 02/19/24 at 21:28. Electronically submitted by Poornima Richardson ([email or web address]). I personally scribed for SHASHI VIZCAINO MD ([email or web address]) on 02/19/24 at 21:29. Electronically submitted by Poornima Richardson ([email or web address]). I personally scribed for SHASHI VIZCAINO MD ([email or web address]) on 02/19/24 at 23:14. Electronically submitted by Poornima Richardson ([email or web address]). SHASHI VIZCAINO MD Feb 19, 2024 21:28
[2024-02-19 21:29] LABS: Urine Bacteria None Seen /hpf (None Seen); Urine WBC None Seen /hpf (0 - 3)
[2024-02-19 21:45] LABS: Basophils # (auto) 0.1 10 ^3/uL (0-0.2); Basophils % (auto) 1.3 % (0.0-2.0); Eosinophils # (auto) 0.2 10 ^3/uL (0-0.8); Eosinophils % (auto) 2.5 % (0.0-7.0); Hemoglobin 16.9 g/dL (13.5-17.5); Lymphocytes % (auto) 45.2 % (10.0-50.0); Mean Corpuscular Hemoglobin 31.5 pg (28.0-32.0); Mean Corpuscular Hgb Conc. 34.5 g/dL (32.0-36.0); Mean Corpuscular Volume 91.3 fL (80.0-100.0); Monocytes # (auto) 0.7 10 ^3/uL (0-1.3); Monocytes % (auto) 10.7 % (0.0-12.0); Neutrophils # (auto) 2.7 10 ^3/uL (1.6-8.6); Neutrophils % (auto) 40.3 % (37.0-80.0); Nucleated Red Blood Cells % 0.8 %; Platelet Count (auto) 319 10^3/uL (140-450); Red Blood Cells 5.37 10^6/uL (4.5-5.90); Red Cell Distribution Width 13.7 % (11.8-14.3); White Blood Cell 6.7 10^3/uL (4.4-10.8)
[2024-02-19 21:49] LABS: Chloride 101 mmol/L (98-107); Sodium 138 mmol/L (136-145)
[2024-02-19 21:50] LABS: Anion Gap 12 (5-15); Calcium 10.2 mg/dL (8.7-10.4); Carbon Dioxide 25 mmol/L (20-31)
[2024-02-19 21:55] LABS: BUN/Creatinine Ratio 5.4 (10.0-20.0)
[2024-02-19 22:02] LABS: Urine Blood Negative /uL (Negative); Urine Clarity Clear (Clear); Urine Color Colorless (Yellow); Urine Protein, UAD TRACE (Negative); Urine Specific Gravity 1.005 (1.001-1.035); Urine Squamous Epithelial Cell FEW /hpf (<5); Urine Urobilinogen Normal (Negative); Urine pH 5.5 (5.0-9.0)
[2024-02-19 22:07] LABS: Blood Urea Nitrogen 6 mg/dL (9-23); Glucose 266 mg/dL (74-106)
[2024-02-19 22:18] VITALS: PULSE 105
--- NOTE | 2024-02-19 22:20 | DVH ---
CHEST RADIOGRAPH Indication: chest pain Technique: Frontal and lateral view of the chest was obtained Comparison: 01/05/2024 FINDINGS: Lines and Tubes: None Lungs: Clear Pleura: No effusion. No pneumothorax. Cardiomediastinal contours: Unremarkable Bones: Unremarkable IMPRESSION: 1. No evidence of acute disease.
[2024-02-19] MEDS ORDERED: PANTOPRAZOLE 40 MG/10 ML VIAL INJ IV ONE (23:30)
[2024-02-19] MEDS ORDERED: SODIUM CHLORIDE 0.9% 1,000 ML IV ONE (23:30)
[2024-02-19] MEDS ORDERED: ONDANSETRON HCL 4 MG/2 ML VIAL IV ONE (23:30)
--- NOTE | 2024-02-20 07:12 | ECG ---
[facility] Test Date: 2024-02-19 Test Time: 21:07:37 Pat Name: MARCELLUS ALBERTS Department: ER Room: Gender: M [place] Sole Layer: : 1996-12-24 Requested By: SHASHI VIZCAINO Order Number: [id number] Reading MD: Kendall Chau Measurements Intervals [place] Rate: 126 P: 50 MA: 139 QRS: 95 QRSD: 89 T: -2 QT: 310 QTc: 449 Interpretive Statements Sinus tachycardia Borderline right axis deviation Borderline T wave abnormalities Baseline wander in lead(s) II,aVF Electronically Signed On 02-20-2024 14:20:40 PST by Kendall Chau Please click the below link to view image of tracing.
[2024-02-20] MEDS ORDERED: HYDR50TA69 PO (11:13)
[2024-02-20] MEDS ORDERED: METO-281 PO (11:13)
--- NOTE | 2024-02-23 05:08 | ECG ---
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
--- NOTE | 2024-02-23 05:08 | ECG ---
[facility] Test Date: 2024-02-20 Test Time: 07:38:34 Pat Name: MARCELLUS ALBERTS Department: ER Room: Gender: M International Flight Attendant: VILMA : 1996-12-24 Requested By: SHASHI VIZCAINO Order Number: [id number] Reading MD: Kendall Chau Measurements Intervals [place] Rate: 151 P: 81 NM: 114 QRS: 176 QRSD: 90 T: 14 QT: 281 QTc: 446 Interpretive Statements Sinus tachycardia Inferior infarct, old Electronically Signed On 02-23-2024 14:09:16 PST by Kendall Chau Please click the below link to view image of tracing.
== END 2024-02-20 00:14 | disposition left against medical advice (07) ==
LOC: ER 21:02
DX: K29.20 Alcoholic gastritis without bleeding (principal); E11.9 Type 2 diabetes mellitus without complications; F17.210 Nicotine dependence, cigarettes, uncomplicated; F15.90 Other stimulant use, unspecified, uncomplicated; F10.90 Alcohol use, unspecified, uncomplicated; Z88.1 Allergy status to other antibiotic agents; Z79.84 Long term (current) use of oral hypoglycemic drugs; Z79.899 Other long term (current) drug therapy; Y90.0 Blood alcohol level of less than 20 mg/100 ml
CPT/HCPCS: 36415; 71046; 80048; 81001; 84484; 85025; 93005

== ENCOUNTER 2024-02-20 07:31 | Emergency (ER) | payer MEDICAID ==
[~2024-02-20] VITALS: Ht 170.2 cm; Wt 91.0 kg
--- NOTE | 2024-02-20 08:09 | DVH ---
CLINICAL INFORMATION: 28 years old, Male; shortness of breath. TECHNIQUE: Single AP portable chest radiograph was obtained. COMPARISON: XY CHEST XRAY 1 VIEW on DOS: 01/05/24, XY CHEST PORTABLE on DOS: 09/22/23, XY CHEST PORTAB LE on DOS: 03/08/23 FINDINGS: Mild atelectasis in the lung bases. No focal consolidation. No pneumothorax or pleural effusion. IMPRESSION: Mild bibasilar atelectasis. No focal consolidation or other acute radiographic abnormality identified in the chest.
[2024-02-20 08:10] LABS: Basophils # (auto) 0.1 10 ^3/uL (0-0.2); Basophils % (auto) 1.1 % (0.0-2.0); Eosinophils # (auto) 0.1 10 ^3/uL (0-0.8); Eosinophils % (auto) 1.8 % (0.0-7.0); Hematocrit 50.1 % (41.0-53.0); Hemoglobin 17.5 g/dL (13.5-17.5); Lymphocytes # (auto) 1.8 10 ^3/uL (0.4-5.4); Lymphocytes % (auto) 29.8 % (10.0-50.0); Mean Corpuscular Hemoglobin 31.8 pg (28.0-32.0); Mean Corpuscular Volume 90.8 fL (80.0-100.0); Monocytes # (auto) 0.6 10 ^3/uL (0-1.3); Monocytes % (auto) 10.5 % (0.0-12.0); Neutrophils # (auto) 3.4 10 ^3/uL (1.6-8.6); Neutrophils % (auto) 56.8 % (37.0-80.0); Nucleated Red Blood Cells % 0.1 %; Platelet Count (auto) 299 10^3/uL (140-450); Red Blood Cells 5.52 10^6/uL (4.5-5.90); Red Cell Distribution Width 13.6 % (11.8-14.3); White Blood Cell 5.9 10^3/uL (4.4-10.8)
[2024-02-20 08:37] LABS: Alkaline Phosphatase 115 U/L (46-116); Anion Gap 13 (5-15); BUN/Creatinine Ratio 9.1 (10.0-20.0); Blood Alcohol 8.6 mg/dL (<10); Carbon Dioxide 25 mmol/L (20-31); Chloride 103 mmol/L (98-107); Magnesium 1.9 mg/dL (1.6-2.6); Potassium 4.4 mmol/L (3.5-5.1); Sodium 141 mmol/L (136-145)
[2024-02-20 08:38] LABS: Bilirubin, Total 1.1 mg/dL (0.2-1.0); Total Protein 8.2 g/dL (5.7-8.2)
[2024-02-20 08:41] LABS: Alanine Aminotransferase 143 U/L (7-40); Aspartate Aminotransferase 84 U/L (13-40); Blood Urea Nitrogen 8 mg/dL (9-23); Calcium 10.6 mg/dL (8.7-10.4); Glucose 199 mg/dL (74-106)
[2024-02-20 08:42] LABS: Albumin 5.3 g/dL (3.2-4.8)
[2024-02-20] MEDS: ONDANSETRON HCL 4 MG/2 ML VIAL IV ONE (08:45)
[2024-02-20] MEDS: SODIUM CHLORIDE 0.9% 1,000 ML IV ONE (09:26)
[2024-02-20] MEDS: KETOROLAC TROMETH 30 MG/ML 1ML VIAL IV ONE (09:27)
[2024-02-20] MEDS: METOCLOPRAMIDE HCL 5MG/ml INJ 2ml VIAL IV ONE (09:28)
--- NOTE | 2024-02-20 09:41 | ED.PDOC ---
HPI Comments A 27 YEAR OLD MALE PRESENTS TO THE ED WITH COMPLAINT OF CHEST PAIN WITH NAUSEA AND VOMITING S/P ETOH USE. PATIENT STATES HE DRINKS ALCOHOL ON A DAILY BASIS AND HAS BEEN EXPERIENCING LEFT-SIDED CHEST PAIN, BODY ACHES, NAUSEA, AND VOMITING FOR THE PAST 2 DAYS. PATIENT WAS HERE IN THIS ED FOR THE SAME COMPLAINT YESTERDAY WHERE LABS WERE DONE ALL OF WHICH WERE NORMAL, BUT WAS NOT GIVEN ANY TREATMENT, PROMPTING HIM TO COME TO THE ED TODAY AGAIN. PATIENT NOTES HE HAS ALSO BEEN EXPERIENCING INCREASED ANXIETY DUE TO HIS SYMPTOMS. HE C/O LEFT SIDE CHEST PAIN WITH LEFT HAND NUMBNESS AND TINGLING SENSATION. PATIENT DENIES SI, HI, FEVER, CHILLS, SHORTNESS OF BREATH, ABDOMINAL PAIN, HEADACHE, OR OTHER COMPLAINTS. NO OTHER SYMPTOMS OR MODIFYING FACTORS AT THIS TIME. PATIENT IS ALERT, ORIENTED X 4, AND HAS STEADY GAIT. Chief Complaint: Chest Pain Time Seen by MD: 08:51 Primary Care Provider: PT DOES NOT KNOW Reviewed Notes: Nurses Notes, Medications, Allergies Allergies: Coded Allergies: Vancomycin (Verified Allergy, Severe, 01/06/24) Home Meds Active Scripts Hydroxyzine Hcl (Hydroxyzine Hcl) 50 Mg Tab, 1 TAB PO QPM, #30 TAB Prov:JACQUELINE ALCANTARA 02/20/24 Metoclopramide Hcl (Reglan) 10 Mg Tab, 10 MG PO BID, #20 TAB Prov:JACQUELINE ALCANTARA 02/20/24 Sulfamethoxazole W/Trimethopri (Bactrim Ds Tablet) 1 Tab Tb, 1 TAB PO BID for 5 Days, #10 TAB Prov:TERESA HESTER MD 01/08/24 Losartan Potassium (Losartan Potassium) 25 Mg Tab, 25 MG PO QPM, #30 TAB Prov:DEBBI WHITING MD 09/24/23 Pantoprazole Sodium Sesquihydr (Pantoprazole Sodium) 40 Mg Tab, 40 MG PO DAILY, #30 TAB Prov:DEBBI WHITING MD 09/24/23 Metformin Hydrochloride (Metformin Hcl) 850 Mg Tab, 1 TAB PO BID, #60 TAB 1 Refill Prov:DEBBI WHITING MD 09/24/23 Gabapentin (Gabapentin) 300 Mg Cap, 1 CAP PO TID, #90 CAP 5 Refills Prov:SHAMIKA WOODWARD MD 03/10/23 Ibuprofen Micronized (Ibuprofen) 800 Mg Tab, 800 MG PO Q8HP PRN, #20 TAB Prov:ENRIQUETA KRAUS 02/21/23 Multiple Vitamins W/ Minerals (Mvi W/ Minerals Tab) 1 Tab Tb, 1 TAB PO DAILY for 30 Days, #30 TAB Prov:ESSIE TURNER MD 01/10/23 Ondansetron (Zofran) 4 Mg Tab, 4 MG PO DAILY for 5 Days, #5 MG Prov:VICTORINA BURKETT MD 05/01/22 Reported Medications Semaglutide (Ozempic) 2 Mg/3 Ml Inj, 2 MG SC, INJ 01/06/24 Atorvastatin Calcium (ATORVASTATIN CALCIUM) 20 Mg Tab, 1 TAB PO DAILY, #30 TAB 5 Refills 01/06/24 Buspirone Hcl (Buspirone Hcl) 30 Mg Tab, 1 PO DAILY 09/23/23 Information Source: Patient Mode of Arrival: Ambulatory Severity: Moderate Timing: Days Duration: Since onset, Days Prehospital treatment: None Location: Chest (L) Quality: Aching Onset: At Rest History of: Similar pain in past Modifying Factors: Nothing Associated Signs and Symptoms: N/V Past Medical History PAST MEDICAL HISTORY: Anxiety, DM Surgical History: Denies all surgeries Family History Family History: Family hx of DM Social History Smoker: Cigarettes Alcohol: Heavy Drugs: Marijuana Lives In: Home Constitutional: reports: others (ANXIOUS ); denies: chills, diaphoresis, fatigue, fever, malaise, sweats, weakness EENTM: denies: blurred vision, double vision, ear bleeding, ear discharge, ear drainage, ear pain, ear ringing, eye pain, eye redness, hearing loss, mouth pain, mouth swelling, nasal discharge, nose bleeding, nose congestion, nose pain, photophobia, tearing, throat pain, throat swelling, voice changes, others Respiratory: denies: cough, hemoptysis, orthopnea, SOB at rest, shortness of breath, SOB with excertion, stridor, wheezing, others Cardiovascular: reports: chest pain; denies: dizzy spells, diaphoresis, Dyspnea on exertion, edema, irregular heart beat, left arm pain, lightheadedness, palpitations, PND, syncope, others Gastrointestinal: reports: nausea, vomiting; denies: abdomen distended, abdominal pain, blood streaked bowels, constipated, diarrhea, dysphagia, difficulty swallowing, hematemesis, melena, poor appetite, poor fluid intake, rectal bleeding, rectal pain, others Genitourinary: denies: burning, dysuria, flank pain, frequency, hematuria, incontinence, penile discharge, penile sore, pain, testicle pain, testicle swelling, urgency, others Neurological: denies: dizziness, fainting, headache, left sided numbness, left sided weakness, numbness, paresthesia, pre-existing deficit, right sided numbness, right sided weakness, seizure, speech problems, tingling, tremors, weakness, others Musculoskeletal: reports: muscle pain; denies: back pain, gout, joint pain, joint swelling, muscle stiffness, neck pain, others Integumetry: denies: bruises, change in color, change in hair/nails, dryness, laceration, lesions, lumps, rash, wounds, others Allergic/Immunocompromised: denies: Difficulty Healing, Frequent Infections, Hives, Itching, others Hematologic/Lymphatic: denies: anemia, blood clots, easy bleeding, easy bruising, swollen glands, others Endocrine: denies: excessive hunger, excessive sweating, excessive thirst, excessive urination, flushing, intolerance to cold, intolerance to heat, unexplained weight gain, unexplained weight loss, others Psychiatric: reports: anxiety; denies: bipolar disorder, depression, hopeless, panic disorder, schizophrenia, sleepless, suicidal, others All Other Systems: Reviewed and Negative Physical Exam General Appearance: No Apparent Distress, Normal, Other (ANXIOUS ) HEENT: Normal ENT Inspection, PERRL/EOMI, Pharynx Normal, TMs Normal Neck: Full Range of Motion, Non-Tender, Normal, Normal Inspection Respiratory: Lungs Clear, No Accessory Muscle Use, No Respiratory Distress, Normal Breath Sounds, Other (TENDERNESS LEFT SIDE CHEST WALL. 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 Was a procedure done?: No CP Differential Dx Differential Diagnosis: Angina, Anxiety / Panic Attack, Hyperventilation, [place] Differential Diagnosis: N/A Differential Diagnosis: Angina, Chest Wall Pain, Esophageal reflux/spasm, Nando ritis, Myocardial Infarction X-Ray, Labs, Meds, VS Vital Signs Date Time Temp Pulse Resp B/P (MAP) Pulse Ox O2 Delivery O2 Flow Rate FiO2 02/20/24 11:38 107 18 149/108 (122) 98 02/20/24 09:42 148 22 98 Room Air 02/20/24 09:42 98.1 148 22 156/112 (127) 98 98.1 02/20/24 09:41 126 02/20/24 08:36 126 02/20/24 07:38 151 02/20/24 07:35 156/112 (127) Lab Test 02/20/24 09:20 02/20/24 08:50 02/20/24 07:49 Range/Units Urine Color Light-orange Yellow Urine Clarity Turbid H Clear Urine pH 6.5 5.0-9.0 Urine Specific [place] 1.034 1.001-1.035 Urine Protein 3+ H Negative Urine Ketones 1+ H Negative Urine Blood Trace H Negative /uL Urine Nitrite Negative Negative Urine Bilirubin Negative Negative Urine Urobilinogen 2 H Negative mg/dL Urine Leukocyte Esterase Trace Negative /uL Urine RBC <1 0 - 3 /hpf Urine WBC 3 0 - 3 /hpf Urine Squamous Epithelial Cells Few <5 /hpf Urine Bacteria None seen None Seen /hpf Urine Mucus Moderate None Seen Urine Glucose 2+ H Normal mg/dL Urine Opiates Screen Neg NEGATIVE Urine Fentanyl Screen Neg NEGATIVE Urine Barbiturates Screen Neg NEGATIVE Urine Phencyclidine Screen Neg NEGATIVE Urine Amphetamines Screen Neg NEGATIVE Urine Benzodiazepines Screen Neg NEGATIVE Urine Cocaine Screen Neg NEGATIVE Urine Cannabinoids Screen Neg NEGATIVE Troponin I High Sensitivity 5 5 </=54 ng/L White Blood Count 5.9 4.4-10.8 10^3/uL Red Blood Count 5.52 4.5-5.90 10^6/uL Hemoglobin 17.5 13.5-17.5 g/dL Hematocrit 50.1 41.0-53.0 % Mean Corpuscular Volume 90.8 80.0-100.0 fL Mean Corpuscular Hemoglobin 31.8 28.0-32.0 pg Mean Corpuscular Hemoglobin Concent 35.0 32.0-36.0 g/dL Red Cell Distribution Width 13.6 11.8-14.3 % Platelet Count 299 140-450 10^3/uL Mean Platelet Volume 7.3 6.9-10.8 fL Neutrophils (%) (Auto) 56.8 37.0-80.0 % Lymphocytes (%) (Auto) 29.8 10.0-50.0 % Monocytes (%) (Auto) 10.5 0.0-12.0 % Eosinophils (%) (Auto) 1.8 0.0-7.0 % Basophils (%) (Auto) 1.1 0.0-2.0 % Neutrophils # (Auto) 3.4 1.6-8.6 10 ^3/uL Lymphocytes # (Auto) 1.8 0.4-5.4 10 ^3/uL Monocytes # (Auto) 0.6 0-1.3 10 ^3/uL Eosinophils # (Auto) 0.1 0-0.8 10 ^3/uL Basophils # (Auto) 0.1 0-0.2 10 ^3/uL Nucleated Red Blood Cells 0.1 % Sodium Level 141 136-145 mmol/L Potassium Level 4.4 3.5-5.1 mmol/L Chloride Level 103 98-107 mmol/L Carbon Dioxide Level 25 20-31 mmol/L Anion Gap 13 5-15 Blood Urea Nitrogen 8 L 9-23 mg/dL Creatinine 0.88 0.700-1.30 mg/dL Glomerular Filtration Rate Calc 120 >90 mL/min BUN/Creatinine Ratio 9.1 L 10.0-20.0 Serum Glucose 199 H 74-106 mg/dL Calcium Level 10.6 H 8.7-10.4 mg/dL Magnesium Level 1.9 1.6-2.6 mg/dL Total Bilirubin 1.1 H 0.2-1.0 mg/dL Aspartate Amino Transferase (AST) 84 H 13-40 U/L Alanine Aminotransferase (ALT) 143 H 7-40 U/L Alkaline Phosphatase 115 46-116 U/L Total Protein 8.2 5.7-8.2 g/dL Albumin 5.3 H 3.2-4.8 g/dL Plasma/Serum Blood Alcohol 8.6 <10 mg/dL Current Medications Medications (Trade) Dose Ordered Sig/Yordan Route Start Time Stop Time Status Last Admin Metoclopramide HCl (Reglan Injection) 10 mg ONCE ONCE IV 02/20/24 08:45 02/20/24 08:46 DC 02/20/24 09:28 Sodium Chloride 1,000 ml @ 1,000 mls/hr Q1H ONCE IV 02/20/24 09:30 02/20/24 10:29 DC 02/20/24 09:26 Ketorolac Tromethamine (Toradol Injection) 30 mg ONCE ONCE IV 02/20/24 09:30 02/20/24 09:31 DC 02/20/24 09:27 Diphenhydramine HCl (Benadryl Injection) 25 mg ONCE ONCE IV 02/20/24 11:15 02/20/24 11:16 DC 02/20/24 11:09 CLINICAL INFORMATION: 28 years old, Male; shortness of breath. TECHNIQUE: Single AP portable chest radiograph was obtained. COMPARISON: XY CHEST XRAY 1 VIEW on DOS: 01/05/24, XY CHEST PORTABLE on DOS: , XY CHEST PORTABLE on DOS: 03/08/23 FINDINGS: Mild atelectasis in the lung bases. No focal consolidation. No pneumothorax or pleural effusion. IMPRESSION: Mild bibasilar atelectasis. No focal consolidation or other acute radiographic abnormality identified in the chest. ATED BY: JIGNESH MON DO DICTATED DATE/TIME: 02/20/24805 SIGNED BY: JIGNESH MON DO SIGNED DATE/TIME: 02/20/24805 CC: X-Ray, Labs, Meds, VS Comment EXTERNAL NOTES: NONE INDEPENDENT HISTORIANS: NONE SOCIAL DETERMINANTS OF HEALTH: NONE LABS ORDERED: CBC, CMP, TROP X3, UA, MAGNESIUM, UDS, URINE ETOH REVIEWED AND INTERPRETED RESULTS: GLUC 199, CA 10.6, TBI 1.1, AST 84, ALT 143, ALB 5.3, PROTEIN 3+, KET 1+, UGLU 2+ IMAGING ORDERED: NONE TREATMENTS ORDERED: NS 1L IV, TORADOL 30MG IV, ZOFRAN 4MG IV, REGLAN 10MG IV, BENADRYL 25MG IV PATIENT'S CASE AND RESULTS HAVE BEEN DISCUSSED WITH THE ED ATTENDING PHYSICIAN AND THEY AGREE WITH MY PLAN OF CARE. I HAVE DISCUSSED LAB RESULTS WITH THE PATIENT AND HAVE INSTRUCTED THE PATIENT TO FOLLOW UP WITH THEIR PCP IN 1-2 DAYS. THE PATIENT FULLY UNDERSTANDS THEIR RESULTS AND ARE AWARE THEY NEED TO FOLLOW UP WITH THEIR PCP FOR FURTHER EVALUATION IF THEIR SYMPTOMS PERSIST. Images Reviewed?: Images reviewed and evaluated by me Time of 1ST Reevaluation: 11:41 Reevaluation 1ST: Improved Patient Education/Counseling: Diagnosis, Treatment, Need For Follow Up Family Education/Counseling: Diagnosis, Treatment, Need For Follow Up Medical Screening: No EMC Exist At This Time Departure 1 Departure Time of Disposition: 11:41 Impression: Primary Impression: Non-cardiac chest pain Additional Impression: Alcohol-induced anxiety disorder Disposition: HOME / SELF CARE / HOMELESS Condition: Stable Additional Instructions: FOLLOW-UP WITH PCP IN 1 TO 2 DAYS. TAKE MEDICATIONS PRESCRIBED. RETURN TO ED FOR ANY NEW OR WORSENING SYMPTOMS. e-Prescriptions Hydroxyzine Hcl (Hydroxyzine Hcl) 50 Mg Tab 1 TAB PO QPM, #30 TAB Prov: JACQUELINE ALCANTARA 02/20/24 Metoclopramide Hcl (Reglan) 10 Mg Tab 10 MG PO BID, #20 TAB Prov: JACQUELINE ALCANTARA 02/20/24 Discharged With: Self, Relative Critical Care Note Critical Care Time?: No Stability Stability form required: No Heart Score Heart Score: Heart Score Response (Comments) Value History N/A 0 EKG N/A 0 Age <45 0 Risk Factors 1 or 2 risk factors 1 Troponin Normal limit 0 Total 1 I personally scribed for JACQUELINE ALCANTARA ([email or web address]) on 02/20/24 at 09:41. Electronically submitted by Altaf Bai ([employer] I personally scribed for JACQUELINE ALCANTARA ([email or web address]) on 02/20/24 at 10:44. Electronically submitted by Altaf Bai ([email or web address]). JACQUELINE ALCANTARA Feb 20, 2024 09:41
[2024-02-20 09:42] VITALS: TEMP 98.1
[2024-02-20 09:55] LABS: Urine Bacteria None Seen /hpf (None Seen)
[2024-02-20 10:18] LABS: Urine Blood TRACE /uL (Negative); Urine Clarity Turbid (Clear); Urine Color Light-Orange (Yellow); Urine Mucus MODERATE (None Seen); Urine Protein, UAD 3+ (Negative); Urine Specific Gravity 1.034 (1.001-1.035); Urine Squamous Epithelial Cell FEW /hpf (<5); Urine Urobilinogen 2 mg/dL (Negative); Urine WBC 3 /hpf (0 - 3); Urine pH 6.5 (5.0-9.0)
[2024-02-20 10:34] LABS: Amphetamine Screen, Urine Neg (NEGATIVE)
[2024-02-20 10:47] LABS: Barbiturate Scree,Urine Neg (NEGATIVE); Benzodiazephine Screen, Urine Neg (NEGATIVE); Cannabinoid Screen, Urine Neg (NEGATIVE); Cocaine Screen, Urine Neg (NEGATIVE); Opiate Scree,Urine Neg (NEGATIVE); Phencyclidine Screen, Urine Neg (NEGATIVE)
[2024-02-20] MEDS: diphenhdrAMINE HCL 50 MG/1 ML VL IV ONE (11:09)
[2024-02-20] MEDS ORDERED: HYDR50TA69 PO (11:13)
[2024-02-20] MEDS ORDERED: METO-281 PO (11:13)
[2024-02-20 11:38] VITALS: BP 149/108; PULSE 107; RESP 18; O2SAT 98
--- NOTE | 2024-02-24 13:03 | ECG ---
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
== END 2024-02-20 11:45 | disposition home or self-care (01) ==
LOC: ER 07:31
DX: R07.89 Other chest pain (principal); F10.980 Alcohol use, unspecified with alcohol-induced anxiety disorder; E11.9 Type 2 diabetes mellitus without complications; F17.210 Nicotine dependence, cigarettes, uncomplicated; Z79.84 Long term (current) use of oral hypoglycemic drugs; Z79.899 Other long term (current) drug therapy; Z88.1 Allergy status to other antibiotic agents
CPT/HCPCS: 36415; 71045; 80053; 80307; 80320; 81001; 83735; 84484; 85025; 93005; 96361; 96374; 96375; 99285; J1200; J1885; J2765; J7030; J2405

== ENCOUNTER 2024-05-12 00:35 | Emergency (ER) | payer MEDICAID ==
[~2024-05-12] VITALS: Ht 170.2 cm; Wt 89.0 kg
[~2024-05-12 00:35] MED LIST changes: +HYDR50TA69 PO; +METO-281 PO
--- NOTE | 2024-05-12 00:59 | ED.PDOC ---
History of Present Illness HPI Comments 27 y/o obese male, with a history of anxiety, uncontrolled DM II, HTN, and occasional alcohol, marijuana, and tobacco use, presents with c/o chest pain, left-arm numbness, diaphoresis, nausea, and vomiting, today. Patient endorses on sudden and unprovoked onset of symptoms that awoke him from his sleep, this morning. He states on pain being localized to his sternum and radiating to his left-chest wall area. He denies any additional significant history along with recent stressors, strenuous activities, or injuries. Patient denies any shortness of breath, palpitations, hematemesis, abdominal pain, or other associated symptoms or modifiers at this time. Upon arrival to ED triage, patient was found with a heart rate of 135 and a blood pressure of 137/105. Patient admits to lisinopril and hydroxyzine use for his HTN and anxiety, respectively, and no medications, currently, for managing his DM. Chief Complaint: Chest Pain Time Seen by MD: 00:40 Primary Care Provider: PT DOES NOT KNOW Reviewed Notes: Nurses Notes, Medications, Allergies Allergies: Coded Allergies: Vancomycin (Verified Allergy, Severe, 01/06/24) Home Meds Active Scripts Hydroxyzine Hcl (Hydroxyzine Hcl) 50 Mg Tab, 1 TAB PO QPM, #30 TAB Prov:JACQUELINE ALCANTARA 02/20/24 Metoclopramide Hcl (Reglan) 10 Mg Tab, 10 MG PO BID, #20 TAB Prov:JACQUELINE ALCANTARA 02/20/24 Sulfamethoxazole W/Trimethopri (Bactrim Ds Tablet) 1 Tab Tb, 1 TAB PO BID for 5 Days, #10 TAB Prov:TERESA HESTER MD 01/08/24 Losartan Potassium (Losartan Potassium) 25 Mg Tab, 25 MG PO QPM, #30 TAB Prov:DEBBI WHITING MD 09/24/23 Pantoprazole Sodium Sesquihydr (Pantoprazole Sodium) 40 Mg Tab, 40 MG PO DAILY, #30 TAB Prov:DEBBI WHITING MD 09/24/23 Metformin Hydrochloride (Metformin Hcl) 850 Mg Tab, 1 TAB PO BID, #60 TAB 1 Refill Prov:DEBBI WHITING MD 09/24/23 Gabapentin (Gabapentin) 300 Mg Cap, 1 CAP PO TID, #90 CAP 5 Refills Prov:SHAMIKA WOODWARD MD 03/10/23 Ibuprofen Micronized (Ibuprofen) 800 Mg Tab, 800 MG PO Q8HP PRN, #20 TAB Prov:NAYANAENRIQUETA Sylvester PAC 02/21/23 Multiple Vitamins W/ Minerals (Mvi W/ Minerals Tab) 1 Tab Tb, 1 TAB PO DAILY for 30 Days, #30 TAB Prov:ESSIE TURNER MD 01/10/23 Ondansetron (Zofran) 4 Mg Tab, 4 MG PO DAILY for 5 Days, #5 MG Prov:VICTORINA BURKETT MD 05/01/22 Reported Medications Semaglutide (Ozempic) 2 Mg/3 Ml Inj, 2 MG SC, INJ 01/06/24 Atorvastatin Calcium (ATORVASTATIN CALCIUM) 20 Mg Tab, 1 TAB PO DAILY, #30 TAB 5 Refills 01/06/24 Buspirone Hcl (Buspirone Hcl) 30 Mg Tab, 1 PO DAILY 09/23/23 Information Source: Patient Mode of Arrival: Ambulatory Severity: Moderate Timing: Hours Duration: Since onset Prehospital treatment: None Past Medical History PAST MEDICAL HISTORY: Anxiety, DM (type II uncontrolled ), HTN Past Medical History (Other): obesity Surgical History: Denies all surgeries Family History Family History: Family hx of DM Social History Smoker: Cigarettes Alcohol: Occasionally Drugs: Marijuana Lives In: Home All Other Systems: Reviewed and Negative (negative unless otherwise stated HPI) Physical Exam General Appearance: No Apparent Distress, Obese HEENT: Normal ENT Inspection, Pharynx Normal, TMs Normal Neck: Full Range of Motion, Non-Tender, Normal, Normal Inspection Respiratory: Chest Non-Tender, Lungs Clear, No Accessory Muscle Use, No Respiratory Distress, Normal Breath Sounds Cardiovascular: No Edema, No JVD, No Murmur, No Gallop, Normal Peripheral Pulses, Regular Rate/Rhythm, Tachycardia, Other (regular rhythm) Breast Exam: Deferred Gastrointestinal: No Organomegaly, Non Tender, No Pulsatile Mass, Normal Bowel Sounds, Soft Genitalia: Deferred Pelvic: Deferred Rectal: Deferred Extremities: No calf tenderness, Normal capillary refill, Normal inspection, Normal range of motion, Non-tender, No pedal edema Musculoskeletal : Apperance: Normal Neurologic: Alert, vamper II-XII nml as Tested, No Motor Deficits, Normal Affect, Normal Mood, No Sensory Deficits Cerebellar Function: Normal Reflexes: Normal Skin: Dry, Normal Color, Warm Lymphatic: No Adenopathy Was a procedure done? Was a procedure done?: No EKG EKG : Pulse Rate (adult): 114 [place]: Normal Cardiac Rhythm: ST Block: None Hypertrophy: None ST: Normal Differential Dx Considerations may include: [place], PE, ACS, angina, anxiety, gastritis, pericarditis, costochondritis, viral syndrome, URI, among others X-Ray, Labs, Meds, VS Vital Signs Date Time Temp Pulse Resp B/P (MAP) Pulse Ox O2 Delivery O2 Flow Rate FiO2 05/12/24 03:44 97 05/12/24 02:40 114 20 97 Room Air* 0 21 05/12/24 02:40 97.8 93 20 150/108 (122) 97 97.8 05/12/24 01:38 120 05/12/24 00:58 114 05/12/24 00:41 114 05/12/24 00:40 98.4 135 20 137/101 (113) 95 98.4 Lab Test 05/12/24 03:50 05/12/24 03:48 05/12/24 01:53 05/12/24 00:50 Range/Units Troponin I High Sensitivity 8 9 9 </=54 ng/L Urine Color Pending Urine Clarity Pending Urine pH Pending Urine Specific [place] Pending Urine Protein Pending Urine Ketones Pending Urine Blood Pending Urine Nitrite Pending Urine Bilirubin Pending Urine Urobilinogen Pending Urine Leukocyte Esterase Pending Urine RBC Pending Urine Microscopic WBC Pending Urine Squamous Epithelial Cells Pending Urine Bacteria Pending Urine Glucose Pending White Blood Count 6.3 4.4-10.8 10^3/uL Red Blood Count 4.94 4.5-5.90 10^6/uL Hemoglobin 15.6 13.5-17.5 g/dL Hematocrit 43.9 41.0-53.0 % Mean Corpuscular Volume 88.9 80.0-100.0 fL Mean Corpuscular Hemoglobin 31.6 28.0-32.0 pg Mean Corpuscular Hemoglobin Concent 35.6 32.0-36.0 g/dL Red Cell Distribution Width 13.6 11.8-14.3 % Platelet Count 329 140-450 10^3/uL Mean Platelet Volume 6.9 6.9-10.8 fL Neutrophils (%) (Auto) 55.1 37.0-80.0 % Lymphocytes (%) (Auto) 30.8 10.0-50.0 % Monocytes (%) (Auto) 11.1 0.0-12.0 % Eosinophils (%) (Auto) 2.4 0.0-7.0 % Basophils (%) (Auto) 0.6 0.0-2.0 % Neutrophils # (Auto) 3.5 1.6-8.6 10 ^3/uL Lymphocytes # (Auto) 1.9 0.4-5.4 10 ^3/uL Monocytes # (Auto) 0.7 0-1.3 10 ^3/uL Eosinophils # (Auto) 0.2 0-0.8 10 ^3/uL Basophils # (Auto) 0 0-0.2 10 ^3/uL Nucleated Red Blood Cells 0.1 % Sodium Level 137 136-145 mmol/L Potassium Level 3.5 3.5-5.1 mmol/L Chloride Level 103 98-107 mmol/L Carbon Dioxide Level 23 20-31 mmol/L Anion Gap 11 5-15 Blood Urea Nitrogen 9 9-23 mg/dL Creatinine 0.72 0.700-1.30 mg/dL Glomerular Filtration Rate Calc 128 >90 mL/min BUN/Creatinine Ratio 12.5 10.0-20.0 Serum Glucose 189 H 74-106 mg/dL Calcium Level 9.5 8.7-10.4 mg/dL Current Medications Medications (Trade) Dose Ordered Sig/Yordan Route Start Time Stop Time Status Last Admin Sodium Chloride 2,000 ml @ 1,000 mls/hr Q2H ONCE IV 05/12/24 01:00 05/12/24 02:59 DC 05/12/24 03:08 Ondansetron HCl (Zofran) 4 mg ONCE ONCE IV 05/12/24 01:00 05/12/24 01:01 DC 05/12/24 03:08 Famotidine (Pepcid Injection) 20 mg ONCE ONCE IV 05/12/24 01:00 05/12/24 01:01 OR 05/12/24 03:08 Sodium Chloride 2,000 ml @ 1,000 mls/hr Q2H ONCE IV 05/12/24 02:00 05/12/24 04:00 DC 05/12/24 03:39 [facility] [id number] [facility] [address] Ph: [phone] DIAGNOSTIC IMAGING Diagnostic Imaging Report : [id number] Signed PATIENT: MARCELLUS ALBERTS ACCT: [id number] UNIT: [id number] : 12/24/1996 LOC: ER ROOM / BED: / AGE / SEX: 27 / M ADM STATUS: REG ER SERVICE ORDERING PHYSICIAN: SHASHI BLANCA MD PROCEDURE(s): CXRP - CHEST PORTABLE REASON: sob ORDER NUMBER(s): [id number], ACCESSION NUMBER(s): [id number] CHEST RADIOGRAPH Indication: sob Technique: Single frontal view of the chest was obtained COMPARISON: XY CHEST PORTABLE on DOS: 02/20/24, XY CHEST XRAY 1 VIEW on DOS: 01/05/24, XY CHEST PORTABLE on DOS: 09/22/23, XY CHEST PORTABLE on DOS: 03/08/23, XY CHEST XRAY 1 VIEW on DOS: 01/07/23 FINDINGS: Lines and Tubes: None Lungs: Clear Pleura: No effusion.No pneumothorax. Cardiomediastinal contours: Unremarkable Bones: Unremarkable IMPRESSION: No abnormality demonstrated. ATED BY: MEGA LAGUNAS MD DICTATED DATE/TIME: 05/12/24110 SIGNED BY: MEGA LAGUNAS MD SIGNED DATE/TIME: 05/12/24110 CC: Time of 1ST Reevaluation: 01:10 Reevaluation 1ST: Unchanged Patient Education/Counseling: Diagnosis, Treatment Family Education/Counseling: No Family Present Additional Information Previous encounter visits reviewed: February 20, 2024 encounter for non-cardiac chest pain Labs ordered: CXR, UA, CBC, BMP, troponin, EKG Concur with findings: CXR Discuss findings with medical personal and: patient Departure 1 Departure Time of Disposition: 04:28 (Patient presented with chest pain that was concerning for possible STEMI, ACS, PE, Pneumonia, Muscle Strain, COPD, Dissection. Data: 1. I ordered and reviewed the result of at least 3 labs inc luding a CBC, BMP, and Troponin. 2. I independently interpreted the following tests: EKG which shows normal sinus rhythm and Chest X-ray which shows a benign chest.Risk:This patient presented with a high risk of morbidity due to further diagnostic testing or treatment and may suffer from an acute cardiac or respiratory disorder. After review of all the data patient is unlikely to have a pe , dissection, and is low risk for acs. Patient is stable at this time.Workup so far is benign and patient will be discharged with outpatient followup. ) Impression: Primary Impression: Acute chest pain Disposition: HOME / SELF CARE / HOMELESS Condition: Stable Additional Instructions: You presented today with chest pain. Your workup today was benign including labs, troponin, EKG, chest x-ray. Your pain may be from musculoskeletal strain, acid reflux, anxiety, or many other factors. It is important to follow up with your regular doctor within 1 week. If your symptoms worsen or you have any other concerns please return to the emergency room. Discharged With: Self Critical Care Note Critical Care Time?: Yes Critical care comment: Acute chest pain Authorized and Performed by: Shashi Blanca MD Total critical care time: Approximately 38 minutes Due to a high probability of clinically significant, life threatening deterioration, the patient required my highest level of preparedness to intervene emergently and I personally spent this critical care time directly and personally managing the patient. This critical care time included obtaining a history; examining the patient; pulse oximetry; ordering and review of studies; arranging urgent treatment with development of a management plan; evaluation of patient's response to treatment; frequent reassessment; and, discussions with other providers. This critical care time was performed to assess and manage the high probability of imminent, life-threatening deterioration that could result in multi-organ failure. It was exclusive of separately billable procedures and treating other patients and teaching time. Please see my other sections and the rest of the note for further information on patient assessment and treatment. Stability Stability form required: No Heart Score Heart Score: Heart Score Response (Comments) Value History Slightly Suspicious 0 EKG Normal 0 Age <45 0 Risk Factors >3 or Hx ASHD 2 Troponin Normal limit 0 Total 2 I personally scribed for SHASHI BLANCA MD ([email or web address]) on 05/12/24 at 00:58. Electronically submitted by Omar Suarez ([email or web address]). I personally scribed for SHASHI BLANCA MD ([email or web address]) on 05/12/24 at 02:10. Electronically submitted by Omar Suarez ([email or web address]). SHASHI BLANCA MD May 12, 2024 00:58
[2024-05-12 01:12] LABS: Basophils # (auto) 0 10 ^3/uL (0-0.2); Basophils % (auto) 0.6 % (0.0-2.0); Chloride 103 mmol/L (98-107); Eosinophils # (auto) 0.2 10 ^3/uL (0-0.8); Eosinophils % (auto) 2.4 % (0.0-7.0); Hematocrit 43.9 % (41.0-53.0); Hemoglobin 15.6 g/dL (13.5-17.5); Lymphocytes # (auto) 1.9 10 ^3/uL (0.4-5.4); Lymphocytes % (auto) 30.8 % (10.0-50.0); Mean Corpuscular Hemoglobin 31.6 pg (28.0-32.0); Mean Corpuscular Hgb Conc. 35.6 g/dL (32.0-36.0); Mean Corpuscular Volume 88.9 fL (80.0-100.0); Monocytes # (auto) 0.7 10 ^3/uL (0-1.3); Monocytes % (auto) 11.1 % (0.0-12.0); Neutrophils # (auto) 3.5 10 ^3/uL (1.6-8.6); Neutrophils % (auto) 55.1 % (37.0-80.0); Nucleated Red Blood Cells % 0.1 %; Platelet Count (auto) 329 10^3/uL (140-450); Red Blood Cells 4.94 10^6/uL (4.5-5.90); Red Cell Distribution Width 13.6 % (11.8-14.3); Sodium 137 mmol/L (136-145); White Blood Cell 6.3 10^3/uL (4.4-10.8)
[2024-05-12 01:13] LABS: Anion Gap 11 (5-15); Carbon Dioxide 23 mmol/L (20-31)
--- NOTE | 2024-05-12 01:13 | DVH ---
CHEST RADIOGRAPH Indication: sob Technique: Single frontal view of the chest was obtained COMPARISON: XY CHEST PORTABLE on DOS: 02/20/24, XY CHEST XRAY 1 VIEW on DOS: 01/05/24, XY CHEST LACHELLE BLE on DOS: 09/22/23, XY CHEST PORTABLE on DOS: 03/08/23, XY CHEST XRAY 1 VIEW on DOS: 01/07/23 FINDINGS: Lines and Tubes: None Lungs: Clear Pleura: No effusion.No pneumothorax. Cardiomediastinal contours: Unremarkable Bones: Unremarkable IMPRESSION: No abnormality demonstrated.
[2024-05-12 01:14] LABS: Calcium 9.5 mg/dL (8.7-10.4)
[2024-05-12 01:18] LABS: Blood Urea Nitrogen 9 mg/dL (9-23)
[2024-05-12 01:24] LABS: Glucose 189 mg/dL (74-106); Potassium 3.5 mmol/L (3.5-5.1)
[2024-05-12 01:25] LABS: BUN/Creatinine Ratio 12.5 (10.0-20.0)
[2024-05-12 02:40] VITALS: BP 150/108; PULSE 114; RESP 20; TEMP 97.8; O2SAT 97
[2024-05-12] MEDS: ONDANSETRON HCL 4 MG/2 ML VIAL IV ONE (03:08)
[2024-05-12] MEDS: FAMOTIDINE (10MG/ML) 2ML VL IV ONE (03:08)
[2024-05-12] MEDS: SODIUM CHLORIDE 0.9% 2,000 ML IV ONE ×2 (03:08→03:39)
[2024-05-12 03:44] VITALS: PULSE 97
[2024-05-12 03:49] LABS: Urine Bacteria None Seen /hpf (None Seen)
[2024-05-12 04:24] LABS: Urine Blood Negative /uL (Negative); Urine Clarity Turbid (Clear); Urine Color Yellow (Yellow); Urine Mucus FEW (None Seen); Urine Protein, UAD TRACE (Negative); Urine Specific Gravity 1.029 (1.001-1.035); Urine Squamous Epithelial Cell FEW /hpf (<5); Urine Urobilinogen Normal (Negative); Urine WBC 35 /HPF (0-3)
--- NOTE | 2024-05-12 05:31 | ECG ---
[facility] Test Date: 2024-05-12 Test Time: 01:38:37 Pat Name: MARCELLUS ALBERTS Department: ED Room: Gender: M Furnace Worker: PAMELA : 1996-12-24 Requested By: EMERGENCY EMERGENCY Order Number: [id number] Reading MD: Kendall Chau Measurements Intervals [place] Rate: 120 P: 46 UT: 138 QRS: -30 QRSD: 85 T: 25 QT: 321 QTc: 454 Interpretive Statements Sinus tachycardia Left axis deviation Electronically Signed On 05-13-2024 22:37:06 PDT by Kendall Chau Please click the below link to view image of tracing.
--- NOTE | 2024-05-12 05:32 | ECG ---
[facility] Test Date: 2024-05-12 Test Time: 03:44:32 Pat Name: MARCELLUS ALBERTS Department: ED Room: Gender: M Sas Statistical Programmer: : 1996-12-24 Requested By: EMERGENCY EMERGENCY Order Number: [id number] Reading MD: Kendall Chau Measurements Intervals [place] Rate: 97 P: 49 RI: 136 QRS: -20 QRSD: 84 T: 28 QT: 351 QTc: 446 Interpretive Statements Sinus rhythm Borderline left axis deviation Electronically Signed On 05-13-2024 22:37:22 PDT by Kendall Chau Please click the below link to view image of tracing.
--- NOTE | 2024-05-12 06:51 | ECG ---
[facility] Test Date: 2024-05-12 Test Time: 00:41:12 Pat Name: MARCELLUS ALBERTS Department: ED Room: Gender: M Strategic Planning Analyst: ASHLEY : 1996-12-24 Requested By: EMERGENCY EMERGENCY Order Number: [id number] Reading MD: Kendall Chau Measurements Intervals [place] Rate: 114 P: 53 [place]: 137 QRS: 59 QRSD: 85 T: 32 QT: 317 QTc: 437 Interpretive Statements Sinus tachycardia Electronically Signed On 05-13-2024 22:37:01 PDT by Kendall Chau Please click the below link to view image of tracing.
== END 2024-05-12 04:50 | disposition home or self-care (01) ==
LOC: ER 00:35
DX: R07.89 Other chest pain (principal); I10 Essential (primary) hypertension; E11.9 Type 2 diabetes mellitus without complications; F17.210 Nicotine dependence, cigarettes, uncomplicated; Z79.84 Long term (current) use of oral hypoglycemic drugs; Z79.899 Other long term (current) drug therapy; Z88.1 Allergy status to other antibiotic agents
CPT/HCPCS: 36415; 71045; 80048; 81001; 84484; 85025; 93005; 96361; 96374; 96375; 99285; J2405; J3490; J7030

== ENCOUNTER 2024-08-20 01:39 | Emergency (ER) | payer MEDICAID ==
[~2024-08-20] VITALS: Ht 170.2 cm; Wt 77.3 kg
[2024-08-20 01:45] VITALS: BP 150/100; PULSE 130; RESP 20; TEMP 97.8; O2SAT 99
[2024-08-20] MEDS ORDERED: SODIUM CHLORIDE 0.9% 1,000 ML IV ONE ×2 (02:00→03:00)
[2024-08-20] MEDS ORDERED: FAMOTIDINE (10MG/ML) 2ML VL IV ONE (02:00)
[2024-08-20] MEDS ORDERED: ONDANSETRON HCL 4 MG/2 ML VIAL IV ONE (02:00)
[2024-08-20 02:06] LABS: Basophils # (auto) 0 10 ^3/uL (0-0.2); Basophils % (auto) 0.5 % (0.0-2.0); Eosinophils # (auto) 0 10 ^3/uL (0-0.8); Eosinophils % (auto) 0.5 % (0.0-7.0); Hematocrit 48.8 % (41.0-53.0); Hemoglobin 16.7 g/dL (13.5-17.5); Lymphocytes # (auto) 0.8 10 ^3/uL (0.4-5.4); Lymphocytes % (auto) 13.4 % (10.0-50.0); Mean Corpuscular Hemoglobin 30.7 pg (28.0-32.0); Mean Corpuscular Hgb Conc. 34.3 g/dL (32.0-36.0); Mean Corpuscular Volume 89.6 fL (80.0-100.0); Monocytes # (auto) 0.7 10 ^3/uL (0-1.3); Monocytes % (auto) 11.8 % (0.0-12.0); Neutrophils # (auto) 4.3 10 ^3/uL (1.6-8.6); Neutrophils % (auto) 73.8 % (37.0-80.0); Nucleated Red Blood Cells % 0.6 %; Platelet Count (auto) 265 10^3/uL (140-450); Red Blood Cells 5.45 10^6/uL (4.5-5.90); Red Cell Distribution Width 12.9 % (11.8-14.3); White Blood Cell 5.8 10^3/uL (4.4-10.8)
--- NOTE | 2024-08-20 02:08 | ED.PDOC ---
History of Present Illness HPI Comments 27 y/o M is BIBA for 1x day history of nausea and vomiting. Patient endorses on developing symptoms soon after consuming alcohol, again, today, after coming out of rehab. He has a history of anxiety, DM II, HTN, and polysubstance abuse. Patient denies any bloody or bilious vomitus, abdominal pain, diarrhea, constipation, tremors, or further associated symptoms. Chief Complaint: Nausea/Vomiting Time Seen by MD: 01:40 Primary Care Provider: PT DOES NOT KNOW Reviewed Notes: Nurses Notes, Rod Mill Tender Notes, Medications, Allergies Allergies: Coded Allergies: Vancomycin (Verified Allergy, Severe, 01/06/24) Home Meds Active Scripts Hydroxyzine Hcl (Hydroxyzine Hcl) 50 Mg Tab, 1 TAB PO QPM, #30 TAB Prov:JACQUELINE ALCANTARA 02/20/24 Metoclopramide Hcl (Reglan) 10 Mg Tab, 10 MG PO BID, #20 TAB Prov:JACQUELINE ALCANTARA 02/20/24 Sulfamethoxazole W/Trimethopri (Bactrim Ds Tablet) 1 Tab Tb, 1 TAB PO BID for 5 Days, #10 TAB Prov:TERESA HESTER MD 01/08/24 Losartan Potassium (Losartan Potassium) 25 Mg Tab, 25 MG PO QPM, #30 TAB Prov:DEBBI WHITING MD 09/24/23 Pantoprazole Sodium Sesquihydr (Pantoprazole Sodium) 40 Mg Tab, 40 MG PO DAILY, #30 TAB Prov:DEBBI WHITING MD 09/24/23 Metformin Hydrochloride (Metformin Hcl) 850 Mg Tab, 1 TAB PO BID, #60 TAB 1 Refill Prov:DEBBI WHITING MD 09/24/23 Gabapentin (Gabapentin) 300 Mg Cap, 1 CAP PO TID, #90 CAP 5 Refills Prov:SHAMIKA WOODWARD MD 03/10/23 Ibuprofen Micronized (Ibuprofen) 800 Mg Tab, 800 MG PO Q8HP PRN, #20 TAB Prov:ENRIQUETA KRAUS 02/21/23 Multiple Vitamins W/ Minerals (Mvi W/ Minerals Tab) 1 Tab Tb, 1 TAB PO DAILY for 30 Days, #30 TAB Prov:ESSIE TURNER MD 01/10/23 Ondansetron (Zofran) 4 Mg Tab, 4 MG PO DAILY for 5 Days, #5 MG Prov:VICTORINA BURKETT MD 05/01/22 Reported Medications Semaglutide (Ozempic) 2 Mg/3 Ml Inj, 2 MG SC, INJ 01/06/24 Atorvastatin Calcium (ATORVASTATIN CALCIUM) 20 Mg Tab, 1 TAB PO DAILY, #30 TAB 5 Refills 01/06/24 Buspirone Hcl (Buspirone Hcl) 30 Mg Tab, 1 PO DAILY 09/23/23 Information Source: Patient, Emergency Med Personnel Mode of Arrival: EMS Severity: Moderate Timing: Hours Duration: Since onset Prehospital treatment: 12 Lead EKG, Clerk Cashier Past Medical History PAST MEDICAL HISTORY: Anxiety, DM (type II), HTN Past Medical History (Other): right knee cellulitis Surgical History: Denies all surgeries Family History Family History: Family hx of DM Social History Smoker: Cigarettes Alcohol: Occasionally Drugs: Marijuana Lives In: Home All Other Systems: Reviewed and Negative (Comprehensive systems review obtained and negative except for what is stated in the HPI.) Physical Exam General Appearance: No Apparent Distress, Normal HEENT: Normal ENT Inspection, Pharynx Normal, TMs Normal Neck: Full Range of Motion, Non-Tender, Normal, Normal Inspection Respiratory: Chest Non-Tender, Lungs Clear, No Accessory Muscle Use, No Respiratory Distress, Normal Breath Sounds Cardiovascular: No Edema, No JVD, No Murmur, No Gallop, Normal Peripheral Pulses, Regular Rate/Rhythm Breast Exam: Deferred Gastrointestinal: No Organomegaly, Non Tender, No Pulsatile Mass, Normal Bowel Sounds, Soft Genitalia: Deferred Pelvic: Deferred Rectal: Deferred Extremities: No calf tenderness, Normal capillary refill, Normal inspection, Normal range of motion, Non-tender, No pedal edema Musculoskeletal : Apperance: Normal Neurologic: Alert, glass handler II-XII nml as Tested, No Motor Deficits, Normal Affect, Normal Mood, No Sensory Deficits Cerebellar Function: Normal Reflexes: Normal Skin: Dry, Normal Color, Warm Lymphatic: No Adenopathy Was a procedure done? Was a procedure done?: No Differential Dx Considerations may include: alcohol withdrawal, substance intoxication, dehydration, electrolyte imbalance, among others X-Ray, Labs, Meds, VS Vital Signs Date Time Temp Pulse Resp B/P (MAP) Pulse Ox O2 Delivery O2 Flow Rate FiO2 08/20/24 01:45 97.8 130 20 150/100 (117) 99 97.8 Lab Test 08/20/24 01:52 Range/Units White Blood Count 5.8 4.4-10.8 10^3/uL Red Blood Count 5.45 4.5-5.90 10^6/uL Hemoglobin 16.7 13.5-17.5 g/dL Hematocrit 48.8 41.0-53.0 % Mean Corpuscular Volume 89.6 80.0-100.0 fL Mean Corpuscular Hemoglobin 30.7 28.0-32.0 pg Mean Corpuscular Hemoglobin Concent 34.3 32.0-36.0 g/dL Red Cell Distribution Width 12.9 11.8-14.3 % Platelet Count 265 140-450 10^3/uL Mean Platelet Volume 7.2 6.9-10.8 fL Neutrophils (%) (Auto) 73.8 37.0-80.0 % Lymphocytes (%) (Auto) 13.4 10.0-50.0 % Monocytes (%) (Auto) 11.8 0.0-12.0 % Eosinophils (%) (Auto) 0.5 0.0-7.0 % Basophils (%) (Auto) 0.5 0.0-2.0 % Neutrophils # (Auto) 4.3 1.6-8.6 10 ^3/uL Lymphocytes # (Auto) 0.8 0.4-5.4 10 ^3/uL Monocytes # (Auto) 0.7 0-1.3 10 ^3/uL Eosinophils # (Auto) 0 0-0.8 10 ^3/uL Basophils # (Auto) 0 0-0.2 10 ^3/uL Nucleated Red Blood Cells 0.6 % Sodium Level 149 H 136-145 mmol/L Potassium Level 3.7 3.5-5.1 mmol/L Chloride Level 110 H 98-107 mmol/L Carbon Dioxide Level 23 20-31 mmol/L Anion Gap 16 H 5-15 Blood Urea Nitrogen 11 9-23 mg/dL Creatinine 1.08 0.700-1.30 mg/dL Glomerular Filtration Rate Calc 96 >90 mL/min BUN/Creatinine Ratio 10.2 10.0-20.0 Serum Glucose 181 H 74-106 mg/dL Calcium Level 10.3 8.7-10.4 mg/dL Plasma/Serum Blood Alcohol 7.7 <10 mg/dL Time of 1ST Reevaluation: 02:10 Reevaluation 1ST: Unchanged Patient Education/Counseling: Diagnosis, Treatment Family Education/Counseling: No Family Present Additional Information Previous visits reviewed: May 12, 2024 encounter for acute chest pain The following tests were ordered, and results were reviewed by me: Blood alcohol, CBC, BMP Additional Information was gathered from interviewing the following independent historians: EMS I reviewed and agreed with the following test results read by other providers: N/A I discussed treatment and results with medical personnel and: patient SEPSIS Sepsis Screen Date sepsis recognized/suspect: Aug 20, 2024 Time Sepsis recognized/suspect: 014 Recent Procedure: No On Antibiotic Therapy: No Respiratory Rate >20: No Heart Rate >90: Yes Temp<36 C (96.8 F) or >38.3 C: No SBP <90 or MAP <65 mmHG: No New Acute Mental Status Change: No Is the patient on CPAP, BIPAP,: No Vital Signs Date Time Temp Pulse Resp B/P (MAP) Pulse Ox O2 Delivery O2 Flow Rate FiO2 08/20/24 01:45 97.8 130 20 150/100 (117) 99 97.8 Laboratory Tests Test 08/20/24 01:52 White Blood Count 5.8 10^3/uL (4.4-10.8) Departure 1 Departure Time of Disposition: 09:05 (Patient presents with a acute alcohol intoxication. We will discharge patient home with outpatient follow up) Impression: Primary Impression: Alcohol intoxication Qualified Codes: F10.920 - Alcohol use, unspecified with intoxication, uncomplicated Disposition: 07 LEFT AWOL/ELOPED Condition: Serious Critical Care Note Critical Care Time?: No Stability Stability form required: No Heart Score Heart Score: Heart Score Response (Comments) Value History N/A 0 EKG N/A 0 Age N/A 0 Risk Factors N/A 0 Troponin N/A 0 Total 0 I personally scribed for SHASHI VIZCAINO MD ([email or web address]) on 08/20/24 at 02:08. Electronically submitted by Omar Suarez [email or web address]). SHASHI VIZCAINO MD Aug 20, 2024 02:08
[2024-08-20 02:15] LABS: Potassium 3.7 mmol/L (3.5-5.1)
[2024-08-20 02:16] LABS: Anion Gap 16 (5-15); Carbon Dioxide 23 mmol/L (20-31)
[2024-08-20 02:17] LABS: Calcium 10.3 mg/dL (8.7-10.4)
[2024-08-20 02:21] LABS: BUN/Creatinine Ratio 10.2 (10.0-20.0); Blood Urea Nitrogen 11 mg/dL (9-23)
[2024-08-20 02:22] LABS: Blood Alcohol 7.7 mg/dL (<10)
[2024-08-20 02:28] LABS: Chloride 110 mmol/L (98-107); Glucose 181 mg/dL (74-106); Sodium 149 mmol/L (136-145)
== END 2024-08-20 04:40 | disposition left against medical advice (07) ==
LOC: EDBD 01:39 → ER 01:39
DX: F10.129 Alcohol abuse with intoxication, unspecified (principal); R11.2 Nausea with vomiting, unspecified; I10 Essential (primary) hypertension; E11.9 Type 2 diabetes mellitus without complications; F17.210 Nicotine dependence, cigarettes, uncomplicated; F41.9 Anxiety disorder, unspecified; Z79.84 Long term (current) use of oral hypoglycemic drugs; Z79.899 Other long term (current) drug therapy; Z88.1 Allergy status to other antibiotic agents; Y90.9 Presence of alcohol in blood, level not specified
CPT/HCPCS: 36415; 80048; 80320; 85025

== ENCOUNTER 2024-11-05 21:09 | Inpatient (IN) | payer MEDICAID ==
[~2024-11-05] VITALS: Ht 170.2 cm; Wt 90.4 kg
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
[2024-11-05] MEDS: SODIUM CHLORIDE 0.9% 1,000 ML IV ONE ×2 (21:48→22:59)
[2024-11-05] MEDS: SUCRALFATE 1 GM TAB PO ONE (22:00)
[2024-11-05] MEDS: PANTOPRAZOLE 40 MG TAB PO ONE (22:00)
[2024-11-05] MEDS: MAGNESIUM SULFATE 1GM/100ML 100 ML IV ONE (22:00)
[2024-11-05] MEDS: THIAMINE HCL 100 MG TAB PO ONE (22:00)
--- NOTE | 2024-11-05 22:10 | DVH ---
CLINICAL HISTORY: cp TECHNIQUE: Single view of the chest was obtained. COMPARISON: XY CHEST PORTABLE on DOS: 05/12/24, XY CHEST PORTABLE on DOS: 02/20/24, XY CHEST XRAY 1 EW on DOS: 01/05/24, XY CHEST PORTABLE on DOS: 09/22/23, XY CHEST PORTABLE on DOS: 03/08/23 FINDINGS: The heart size and pulmonary vasculature are normal. The lungs are clear. IMPRESSION: NO ACUTE CARDIOPULMONARY PROCESS.
[2024-11-05 22:25] LABS: Hematocrit 50.4 % (41.0-53.0); Hemoglobin 18.2 g/dL (13.5-17.5); Mean Corpuscular Hemoglobin 32.5 pg (28.0-32.0); Mean Corpuscular Volume 90.1 fL (80.0-100.0); Nucleated Red Blood Cells % 0.1 %
[2024-11-05] MEDS: ONDANSETRON HCL 4 MG/2 ML VIAL IV ONE (22:30)
[2024-11-05] MEDS: LIDOCAINE VISCOUS 2% 15ML UD PO ONE (22:35)
[2024-11-05 22:43] LABS: Alkaline Phosphatase 104 U/L (46-116); Anion Gap 15 (5-15); Calcium 9.6 mg/dL (8.7-10.4); Carbon Dioxide 22 mmol/L (20-31); Chloride 102 mmol/L (98-107); Magnesium 1.9 mg/dL (1.6-2.6); Potassium 3.7 mmol/L (3.5-5.1); Sodium 139 mmol/L (136-145)
[2024-11-05 22:44] LABS: Bilirubin, Total 0.6 mg/dL (0.2-1.0)
[2024-11-05 22:45] LABS: Alanine Aminotransferase 122 U/L (7-40); Albumin 5.0 g/dL (3.2-4.8); BUN/Creatinine Ratio 5.5 (10.0-20.0); Blood Urea Nitrogen < 5 mg/dL (9-23); Glucose 201 mg/dL (74-106); Total Protein 8.4 g/dL (5.7-8.2)
[2024-11-05 22:58] LABS: Lipase 41 U/L (12-53)
[2024-11-05 23:01] LABS: Lactic Acid w/Reflex 3.2 mmol/L (0.4-2.0)
[2024-11-05 23:39] LABS: Urine Protein, UAD Negative (Negative)
[2024-11-05] MEDS ORDERED: DEXTROSE (50%) 50ML SYRG IV PRN (23:45)
[2024-11-05] MEDS ORDERED: IBUPROFEN 600 MG TAB PO PRN (23:45)
[2024-11-05] MEDS ORDERED: HYDROcodone-ACET 5/325MG TAB PO PRN (23:45)
[2024-11-05] MEDS ORDERED: ONDANSETRON HCL 4 MG/2 ML VIAL IV PRN (23:45)
[2024-11-05] MEDS ORDERED: DOCUSATE SOD 100 MG CAP PO PRN (23:45)
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
[2024-11-06] VITALS (12 sets, daily range): BP systolic 132–172; BP diastolic 98–120; PULSE 108–150; RESP 13–24; TEMP 98–98.7; O2SAT 92–99
[2024-11-06 00:09] LABS: Amphetamine Screen, Urine Pos (NEGATIVE); Barbiturate Scree,Urine Neg (NEGATIVE); Benzodiazephine Screen, Urine Neg (NEGATIVE); Cannabinoid Screen, Urine Neg (NEGATIVE); Cocaine Screen, Urine Neg (NEGATIVE); Opiate Scree,Urine Neg (NEGATIVE); Phencyclidine Screen, Urine Neg (NEGATIVE)
[2024-11-06] MEDS: NITROGLYCERIN 0.4 MG SL TAB SL ONE (00:23)
[2024-11-06] MEDS: NITROGLYCERIN 0.4 MG SL TAB SL PRN (00:50)
[2024-11-06] MEDS: LORazepam 2MG/ML-1ML VIAL IV PRN (01:13)
[2024-11-06] MEDS: hydrALAZINE HCL 20 MG/ML VL IV PRN (01:43)
--- NOTE | 2024-11-06 01:44 | ECG ---
[facility] Test Date: 2024-11-05 Test Time: 22:25:41 Pat Name: MARCELLUS ALBERTS Department: ED Room: 0278T Gender: M Bolt Maker: PATTI : 1996-12-24 Requested By: YESSICA OTTO Order Number: [id number] Reading MD: Kendall Chau Measurements Intervals [place] Rate: 146 P: 33 RI: 107 QRS: -8 QRSD: 87 T: 8 QT: 283 QTc: 441 Interpretive Statements Sinus tachycardia Consider anterior infarct Electronically Signed On 11-11-2024 9:24:33 PDT by Kendall Chau Please click the below link to view image of tracing.
--- NOTE | 2024-11-06 01:44 | ECG ---
[facility] Test Date: 2024-11-05 Test Time: 21:16:48 Pat Name: MARCELLUS ALBERTS Department: ED Room: 0278T Gender: M Sports Medicine [place]: CHANDRAKANT : 1996-12-24 Requested By: YESSICA OTTO Order Number: [id number] Reading MD: Kendall Chau Measurements Intervals [place] Rate: 160 P: 240 CA: 97 QRS: 17 QRSD: 94 T: 45 QT: 351 QTc: 573 Interpretive Statements Sinus or ectopic atrial tachycardia Inferior infarct, old Prolonged QT interval Electronically Signed On 11-11-2024 9:24:18 PDT by Kendall Chau Please click the below link to view image of tracing.
[2024-11-06] MEDS ORDERED: CHLO5CAP3 PO (04:58)
[2024-11-06] MEDS: ACCU-CHEK COMFORT CURVE STRIP VI SCH (06:50)
[2024-11-06] MEDS: InsuLIN REG 1unit/0.01ml Soln (100units/ml) SC SCH ×2 (06:53→21:25)
[2024-11-06] MEDS: MORPHINE SULFATE INJ 2 MG/ml SYRG IV PRN (07:06)
[2024-11-06] MEDS: SODIUM CHLORIDE 0.9% 1,000 ML IV SCH (08:00)
[2024-11-06] MEDS: FOLIC ACID 1 MG in D5W 5% 50 ML INJ ONE (08:01)
[2024-11-06 08:04] LABS: Hematocrit 47.7 % (41.0-53.0); Hemoglobin 17.1 g/dL (13.5-17.5); Mean Corpuscular Hemoglobin 32.3 pg (28.0-32.0); Mean Corpuscular Volume 89.8 fL (80.0-100.0); Nucleated Red Blood Cells % 0.1 %
[2024-11-06 08:17] LABS: Albumin 4.7 g/dL (3.2-4.8); Alkaline Phosphatase 94 U/L (46-116); Anion Gap 11 (5-15); Calcium 9.5 mg/dL (8.7-10.4); Carbon Dioxide 24 mmol/L (20-31); Chloride 103 mmol/L (98-107); Potassium 3.7 mmol/L (3.5-5.1); Sodium 138 mmol/L (136-145); Total Protein 7.7 g/dL (5.7-8.2)
[2024-11-06 08:22] LABS: Alanine Aminotransferase 105 U/L (7-40); BUN/Creatinine Ratio 6.8 (10.0-20.0); Bilirubin, Total 1.7 mg/dL (0.2-1.0); Blood Urea Nitrogen < 5 mg/dL (9-23); Glucose 170 mg/dL (74-106)
[2024-11-06] MEDS: METOPROLOL TARTRATE 25 MG TAB PO SCH (10:00)
[2024-11-06] MEDS: PANTOPRAZOLE 40 MG/10 ML VIAL INJ IV SCH (10:00)
[2024-11-06] MEDS: THIAMINE 100mg/ml INJ (200mg/2ml VIAL) IV SCH (10:00)
[2024-11-06] MEDS: LOSARTAN POTASSIUM 25 MG TAB PO SCH (10:01)
[2024-11-06] MEDS: FOLIC ACID 1 MG in D5W 5% 50 ML INJ SCH (10:23)
--- NOTE | 2024-11-06 11:17 | DVHPN2 ---
Subjective The patient is seen and examined at bedside. The patient is still go through withdrawal from alcohol. Complain of insomnia and requests some sleeping aid Reviewed: Care Plan, H&P, Labs, Medications, Previous Orders Changes from previous H/P or p: No Changes Eyes: No Pain, No Vision change, No Conjunctivae inflammation, No Eyelid inflammation, No Other, No Redness ENT: No Ear pain, No Ear discharge, No Nose pain, No Nose discharge, No Nose congestion, No Mouth pain, No Mouth swelling, No Throat pain, No Throat swelling, No Other Cardiovascular: Chest Pain, Palpitations; No Orthopnea, No Paroxysmal Noc. Dyspnea, No Edema, No Lt Headedness, No Other Respiratory: No Cough, No Dry, No Shortness of breath, No SOB with excertion, No Wheezing, No Hemoptysis, No Pleuritic Pain, No Sputum, No Other Gastrointestinal: No Nausea, No Vomiting, No Abdominal Pain, No Diarrhea, No Constipation, No Melena, No Hematochezia, No Other Genitourinary: No Dysuria, No Frequency, No Incontinence, No Hematuria, No Retention, No Other Musculoskeletal: No other, No neck pain, No shoulder pain, No arm pain, No back pain, No hand pain, No leg pain, No foot pain Skin: No Rash, No Lesions, No Jaundice, No Bruising, No Other Objective Vitals Vital Signs Date Time Temp Pulse Resp B/P (MAP) Pulse Ox O2 Delivery O2 Flow Rate FiO2 11/06/24 11:02 109 197/129 11/06/24 08:02 24 11/06/24 08:00 98.5 96 98.5 11/06/24 08:00 Room Air* 0 21 Intake/Output Intake and Output 11/06/24 07:00 Intake Total 2100 ml Balance 2100 ml Intake IV Total 2100 ml General Appearance: Alert, moderate distress HEENT: Atraumatic, PERRLA, EOMI, Mucous membr. moist/pink Neck: Supple Cardiovascular: Regular rate, Normal S1, Normal S2, No murmurs, Gallops Abdomen: Normal bowel sounds, Soft, No tenderness Neuro: Cranial nerves 3-12 NL Psych/Mental Status: Mental status NL Medications Current Medications Medications Dose Ordered Sig/Yordan Route Start Time Stop Time Status Last Admin Dose Admin Thiamine HCl 100 mg DAILY IV 11/06/24 10:00 11/06/24 10:00 100 MG Folic Acid 1 mg/ Dextrose 50.2 ml @ 200.8 mls/ hr DAILY INJ 11/06/24 10:00 11/06/24 10:23 200.8 MLS/HR Lorazepam 1 mg Q2HP PRN IV 11/05/24 23:45 11/06/24 08:38 1 MG Ibuprofen 600 mg Q6HP PRN PO 11/05/24 23:45 Pantoprazole Sodium 40 mg DAILY IV 11/06/24 10:00 11/06/24 10:00 40 MG Losartan Potassium 25 mg DAILY PO 11/06/24 10:00 11/06/24 10:01 25 MG Hydralazine HCl 10 mg Q6HP PRN IV 11/05/24 23:45 11/06/24 11:01 10 MG Metoprolol Tartrate 25 mg BID PO 11/06/24 10:00 11/06/24 10:00 25 MG Diagnostic Test (Pha) 1 strip ACHS 11/06/24 07:00 11/06/24 06:50 1 STRIP Insulin Human Regular HS SC 11/06/24 22:00 Insulin Human Regular AC SC 11/06/24 07:00 11/06/24 06:53 3 UNITS Dextrose 50 ml UD PRN IV 11/05/24 23:45 Sodium Chloride 1,000 ml @ 60 mls/hr [id number] IV 11/05/24 23:45 11/06/24 08:00 60 MLS/HR Acetaminophen/ Hydrocodone Bitart 1 tab Q4HP PRN PO 11/05/24 23:45 Ondansetron HCl 4 mg Q4HP PRN IV 11/05/24 23:45 Docusate Sodium 100 mg BIDPRN PRN PO 11/05/24 23:45 Nitroglycerin 0.4 mg Q5MINP PRN SL 11/05/24 23:45 11/06/24 00:50 0.4 MG Morphine Sulfate 2 mg Q30M PRN IV 11/05/24 23:45 11/06/24 07:06 2 MG Laboratory Results Laboratory Tests 11/06/24 07:54 Chemistry Test 11/05/24 21:23 11/06/24 07:54 Albumin 5.0 g/dL (3.2-4.8) H 4.7 g/dL (3.2-4.8) Calcium Level 9.6 mg/dL (8.7-10.4) 9.5 mg/dL (8.7-10.4) Magnesium Level 1.9 mg/dL (1.6-2.6) Total Protein 8.4 g/dL (5.7-8.2) H 7.7 g/dL (5.7-8.2) Lipid panel Test 11/05/24 21:23 Lipase 41 U/L (12-53) LFT Test 11/05/24 21:23 11/06/24 07:54 Alanine Aminotransferase (ALT) 122 U/L (7-40) H 105 U/L (7-40) H Alkaline Phosphatase 104 U/L (46-116) 94 U/L (46-116) Aspartate Amino Transferase (AST) 81 U/L (13-40) H 65 U/L (13-40) H Total Bilirubin 0.6 mg/dL (0.2-1.0) 1.7 mg/dL (0.2-1.0) H Urinalysis Test 11/05/24 23:00 Urine Color Colorless (Yellow) Urine Clarity Clear (Clear) Urine pH 7.0 (5.0-9.0) Urine Specific [employer] 1.008 (1.001-1.035) Urine Protein Negative (Negative) Urine Ketones 1+ (Negative) H Urine Blood Negative /uL (Negative) Urine Nitrite Negative (Negative) Urine Bilirubin Negative (Negative) Urine Urobilinogen Normal mg/dL (Negative) Urine Leukocyte Esterase Negative /uL (Negative) Urine RBC None seen /hpf (0 - 3) Urine Microscopic WBC 1 /HPF (0-3) Urine Squamous Epithelial Cells Few /hpf (<5) Urine Bacteria None seen /hpf (None Seen) Urine Glucose 3+ mg/dL (Normal) H Labs and/or images reviewed: Labs reviewed by me Assessment/Plan Assessment/Plan Acute chest pain Alcohol withdrawal Tachycardia Generalized weakness Diabetes mellitus with hyperglycemia Continuing current management. We will give Restoril 15 mg p.o. q.h.s. p.r.n. for sleep. Continuing with alcohol withdrawal protocol which is the aspirin, statin and blood pressure. Sliding scale insulin with moderate scale. Accu-Chek q.a.c. and HS. Continuing Ativan and Librium as needed for alcohol withdrawal This medical document was created using an electronic medical record system with [employer] direct computerized dictation system. Although this document has been carefully reviewed, there may still be some phonetic and typographical errors. These areas are purely typographical due to imperfections of the software programs, and do not reflect any compromise in the patient's medical care. Plan discussed with: Patient, Spouse Date of Service: Nov 06, 2024 Billing Provider: SHAMIKA WOODWARD MD Common Visit Codes: [id number] INP/OBS CARE(HIGH) SHAMIKA WOODWARD MD Nov 06, 2024 11:17
[2024-11-06] MEDS: TEMAZEPAM 15 MG CAP PO PRN (20:54)
== END 2024-11-07 01:30 | disposition left against medical advice (07) | DRG 243 ==
LOC: ER 21:09 → OVERFLOW 23:36 → TELE-WESTW 11-06 13:00
PROVIDERS: ADMIT Internal Medicine; ATTEND Internal Medicine
DX: K21.9 Gastro-esophageal reflux disease without esophagitis (principal); E87.20 Acidosis, unspecified; E11.65 Type 2 diabetes mellitus with hyperglycemia; F10.139 Alcohol abuse with withdrawal, unspecified; R00.0 Tachycardia, unspecified; R53.1 Weakness; F41.9 Anxiety disorder, unspecified; F15.10 Other stimulant abuse, uncomplicated; F17.210 Nicotine dependence, cigarettes, uncomplicated; G47.00 Insomnia, unspecified; I10 Essential (primary) hypertension; Y90.6 Blood alcohol level of 120-199 mg/100 ml; Z83.3 Family history of diabetes mellitus; Z88.1 Allergy status to other antibiotic agents; Z53.29 Procedure and treatment not carried out because of patient's decision for other reasons
CPT/HCPCS: 36415; 71045; 80053; 80307; 80320; 81001; 82962; 83605; 83690; 83735; 84484; 85025; 93005; 96365; 96375; 99291; G0378; J1815; J2405; J2470; J7060